=== PATIENT | female | born 1980 | race Caucasian/White ===

== ENCOUNTER 2017-01-02 09:06 | Emergency (ER) | payer BC ==
[2017-01-02 10:39] VITALS: BP 124/70
--- NOTE | 2017-01-02 10:51 | UC ---
Respiratory Complaint HPI - HPI Summary HPI Summary: PATIENT PRESENTS WITH COUGH, CONGESTION, FEVER AND BODY ACHES X 3 DAYS. SHE STATES HER DAUGHTER HAS BEEN SICK FOR 1 WEEK. SHE IS AND HAS BEEN TAKING TYLENOL WITHOUT RELIEF. COUGH IS WITH MILD PRODUCTION AND IS CLEAR TO GREEN WITH A SPECK OF RED IN COLOR. BODY ACHES THROUGHOUT WITH CONGESTION MAINLY IN THE MIDSTERNAL CHEST WHICH DOES NOT RADIATE. SHE DENIES URINARY SYMPTOMS, BUT NOTES TO DECREASED APPETITE. NEXT APPT WITH OBGYN ON 01/19/17. - History of Current Complaint Chief Complaint: UCGI Stated Complaint: RESPIRATORY Time Seen by Provider: 01/02/17 10:16 Hx Obtained From: Patient Hx Last Menstrual Period: 07/12/16 ?: Yes Onset/Duration: Gradual Onset Timing: Constant Severity Initially: Moderate Severity Currently: Moderate Pain Intensity: 2 Pain Scale Used: 0-10 Numeric Character: Cough: Productive Aggravating Factors: Recumbent Position Alleviating Factors: Upright Position Associated Signs And Symptoms: Positive: Fever, Chills, URI, Nasal Congestion, Sinus Discomfort - Risk Factors Pulmonary Embolism Risk Factors: Cardiac Risk Factors: Negative Pseudomonas Risk Factors: Negative Tuberculosis Risk Factors: Negative - Allergies/Home Medications Allergies/Adverse Reactions: Allergies Allergy/AdvReac Type Severity Reaction Status Date / Time Penicillins Allergy Hives Verified 01/02/17 10:10 Home Medications: Home Medications Acetaminophen [Acetaminophen Extra Stren] 500 mg PO BEDTIME 01/02/17 [History Confirmed 01/02/17] PMH/Surg Hx/FS Hx/Imm Hx Previously Healthy: Yes Endocrine History Of: Denies: Diabetes, Thyroid Disease, Hyperthyroidism, Hypothyroidism, Dyslipidemia Respiratory History Of: Denies: COPD, Asthma, Bronchitis, Pneumonia, Pulmonary Embolism GI/ History Of: Denies: Gastroesophageal Reflux, Ulcer, Gastrointestinal Bleed, Gall Bladder Disease, Kidney Stones, Diverticulitis, Renal Disease, Urosepsis Neurological History Of: Denies: TIA, CVA, Dementia, Seizures, Migraine Psychological History Of: Denies: Anxiety, Depression, Bipolar Disorder, Schizophrenia, Post Traumatic Stress Disorder Cancer History Of: Denies: Lung Cancer, Colorectal Cancer, Breast Cancer, Prostate Cancer, Cervical Cancer - Surgical History Surgical History: Yes Surgery Procedure, Year, and Place: T&A, 1987. , 2011. [facility], 1999 - Family History Known Family History: Negative: Cardiac Disease, Diabetes - Social History Occupation: Employed Full-time Lives: With Family Alcohol Use: None Alcohol Amount: 1 bottle of wine a week Substance Use Type: None Smoking Status (MU): Former Smoker Type: Cigarettes Length of Time of Smoking/Using Tobacco: 8 Years Have You Smoked in the Last Year: No When Did the Patient Quit Smoking/Using Tobacco: 2006 Review of Systems Constitutional: Fever, Fatigue Skin: Negative Eyes: Negative ENT: Nasal Discharge Respiratory: Cough Cardiovascular: Negative Gastrointestinal: Negative Motor: Negative Neurovascular: Negative Neurological: Negative Psychological: Negative All Other Systems Reviewed And Are Negative: Yes Physical Exam Triage Information Reviewed: Yes Appearance: Well-Appearing, No Pain Distress, Well-Nourished Vital Signs: Initial Vital Signs Temp 100 F 01/02/17 09:59 Pulse 109 01/02/17 09:59 Resp 22 01/02/17 09:59 BP 124/70 01/02/17 09:59 Pulse Ox 97 01/02/17 09:59 Vital Signs Reviewed: Yes Eye Exam: Normal Eyes: Positive: Conjunctiva Clear ENT: Positive: Pharynx normal, Nasal drainage Dental Exam: Normal Neck exam: Normal Neck: Positive: Supple, No Lymphadenopathy Respiratory: Positive: Chest non-tender, Lungs clear, Normal breath sounds, No respiratory distress Cardiovascular Exam: Normal Cardiovascular: Positive: RRR, No Murmur Musculoskeletal Exam: Normal Musculoskeletal: Positive: Strength Intact Neurological Exam: Normal Neurological: Positive: Alert Psychological: Positive: Normal Response To Family Skin Exam: Normal UC Diagnostic Evaluation - Laboratory O2 Sat by Pulse Oximetry: 97 Respiratory Course/Dx - Course Course Of Treatment: LUNG BASES ARE CLEAR. CONGESTION IS MIDSTERNAL AND DOES NOT RADIATE. SHE ENDORSES FEVER AND BODY ACHES. EDUCATED PATIENT ON VIRAL ILLNESSES AND INCREASED RISK OF VIRAL ILLNESSES IN WOMEN WITH SYMPTOMS OF CONGESTION, FEVER, BODY ACHES. PATIENT IS ENCOURAGED TO TAKE A FEW DAYS OFF WORK, USE TYLENOL FOR ANY FEVER AND MUCINEX (SAFE IN ) NEEDED FOR CONGESTION. FOLLOW UP NEEDED OR FOR ANY WORSENING SYMPTOMS. - Differential Dx/Diagnosis Differential Diagnosis/HQI/PQRI: Bronchitis, Lower Resp Infection, Sinusitis Provider Diagnoses: UPPER RESPIRATORY INFECTION Discharge - Discharge Plan Condition: Stable Disposition: HOME Prescriptions: Pseudoephedrine-Guaifenesin [Mucinex D] 1 tab PO DAILY #10 tab Patient Education Materials: Upper Respiratory Infection (ED) Forms: *Work Release Referrals: Riana Ratliff MD [Primary Care Provider] - Additional Instructions: Based on the limited available data, an increased risk of adverse outcomes has not been observed following maternal use of guaifenesin in (Denys 1985; Macey 1977; Analia 1981; Ankita 2013; West 1998). Alcohol may be present in some liquid formulations of guaifenesin. If consumed in sufficient quantities during , alcohol syndrome may result ( Florentin 1981). Tylenol 650 mg every 4 to 6 hours; maximum daily dose: 3250 mg daily unless directed by health care provider; under health care provider supervision Upper respiratory tract infection is common in women, especially in the winter, when the etiology is likely viral. The clinical manifestations of low grade fever, congestion, rhinorrhea, and cough are helpful in the diagnosis.
== END 2017-01-02 10:53 | disposition home or self-care (01) ==
LOC: UCCORT 09:06
DX: O26.892 Other specified pregnancy related conditions, second trimester (principal); J06.9 Acute upper respiratory infection, unspecified; Z3A.25 25 weeks gestation of pregnancy; Z88.0 Allergy status to penicillin; Z87.891 Personal history of nicotine dependence
CPT/HCPCS: 99212; G0463

== ENCOUNTER 2017-01-07 09:02 | Emergency (ER) | payer BC ==
[2017-01-07 09:30] VITALS: BP 110/64
--- NOTE | 2017-01-07 10:10 | UC ---
Throat Pain/Nasal Binh HPI - HPI Summary HPI Summary: 10 day history of congestion, cough and malaise. Here 01/02 and diagnosed with URI, symptomatic treatment advised. Initially had fever, now has increasing cough with nocturnal wheeze, increasing facial pressure, and malaise. Appetite decreased. - History of Current Complaint Chief Complaint: UCRespiratory Stated Complaint: SINUS Time Seen by Provider: 01/07/17 09:37 Hx Obtained From: Patient Hx Last Menstrual Period: 07/08/16 ?: Yes Onset/Duration: Gradual Onset, Lasting Days - 8 Severity: Moderate Cough: Productive Associated Signs & Symptoms: Positive: Wheezing, Hoarseness, Sinus Discomfort - Epiglottits Risk Factors Epiglottis Risk Factors: Negative - Allergies/Home Medications Allergies/Adverse Reactions: Allergies Allergy/AdvReac Type Severity Reaction Status Date / Time Penicillins Allergy Hives Verified 01/07/17 09:30 PMH/Surg Hx/FS Hx/Imm Hx Previously Healthy: Yes Endocrine History Of: Denies: Diabetes, Thyroid Disease, Hyperthyroidism, Hypothyroidism, Dyslipidemia Respiratory History Of: Denies: COPD, Asthma, Bronchitis, Pneumonia, Pulmonary Embolism GI/ History Of: Denies: Gastroesophageal Reflux, Ulcer, Gastrointestinal Bleed, Gall Bladder Disease, Kidney Stones, Diverticulitis, Renal Disease, Urosepsis Neurological History Of: Denies: TIA, CVA, Dementia, Seizures, Migraine Psychological History Of: Denies: Anxiety, Depression, Bipolar Disorder, Schizophrenia, Post Traumatic Stress Disorder Cancer History Of: Denies: Lung Cancer, Colorectal Cancer, Breast Cancer, Prostate Cancer, Cervical Cancer - Surgical History Surgical History: Yes Surgery Procedure, Year, and Place: T&A, 1987. , 2011. 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 Lives: With Family Alcohol Use: None Alcohol Amount: 1 bottle of wine a week Substance Use Type: None Smoking Status (MU): Former Smoker Type: Cigarettes Length of Time of Smoking/Using Tobacco: 8 Years Have You Smoked in the Last Year: No When Did the Patient Quit Smoking/Using Tobacco: 2006 Review of Systems Constitutional: Fatigue Skin: Negative Eyes: Negative ENT: Sore Throat Respiratory: Cough Cardiovascular: Negative Gastrointestinal: Negative Genitourinary: Negative Motor: Negative Neurovascular: Negative Musculoskeletal: Negative Neurological: Headache Psychological: Negative All Other Systems Reviewed And Are Negative: Yes Physical Exam Triage Information Reviewed: Yes Appearance: Ill-Appearing - looks fatigued and unwelll. Vital Signs: Initial Vital Signs Temp 97.9 F 01/07/17 09:23 Pulse 98 01/07/17 09:23 Resp 18 01/07/17 09:23 BP 110/64 01/07/17 09:23 Pulse Ox 98 01/07/17 09:23 ENT: Positive: Pharyngeal erythema, Other: - tenderness maxillary sinuses. Neck: Positive: Supple, Nontender, No Lymphadenopathy Respiratory: Positive: Rhonchi - upper lung hernandes., Other: - course breath sounds. Negative: Respiratory distress, Accessory muscle use Cardiovascular: Positive: RRR, No Murmur Abdomen Description: Positive: Nontender, Soft Musculoskeletal Exam: Normal Neurological Exam: Normal Psychological Exam: Normal Skin Exam: Normal Throat Pain/Nasal Course/Dx - Course Course Of Treatment: azithromycin for treatment of sinusitis. - Differential Dx/Diagnosis Differential Diagnosis/HQI/PQRI: Pharyngitis, Sinusitis, Other - pneumonia Provider Diagnoses: bilateral maxillary sinusitis. Discharge - Discharge Plan Condition: Stable Disposition: HOME Patient Education Materials: Sinusitis (ED) Additional Instructions: Continue high intake of fluids. Take full course of azithromycin, and rest at home over the weekend.
== END 2017-01-07 10:23 | disposition home or self-care (01) ==
LOC: UCCORT 09:02
DX: J01.00 Acute maxillary sinusitis, unspecified (principal); B96.89 Other specified bacterial agents as the cause of diseases classified elsewhere; Z87.891 Personal history of nicotine dependence
CPT/HCPCS: 99212; G0463

== ENCOUNTER 2017-03-31 06:07 | Inpatient (IN) | payer BC ==
[2017-03-31] MEDS ORDERED: Famotidine IV* 10 MG/ML 2 ML (20 mg) IV ONE (06:09)
[2017-03-31] MEDS ORDERED: Sodium Citrate/Citric Acid* 15 ML UDC PO ONE (06:09)
[2017-03-31] MEDS ORDERED: Buffered Lidocaine 0.9% SYRIN* 5 ML/SYR SYRINGE INTRADERM ONE (06:09)
[2017-03-31 06:47] LABS: Hematocrit 41 % (35-47); Hemoglobin 13.7 g/dl (12.0-16.0); Mean Corpuscular HGB Conc 34 g/dl (31-36); Mean Corpuscular Hemoglobin 29 pg (27-31); Mean Corpuscular Volume 86 fL (80-97); Mean Platelet Volume 9 um3 (7.4-10.4); Red Blood Count 4.77 10^6/ul (4.0-5.4); Red Cell Distribution Width 14 % (10.5-15)
[2017-03-31] MEDS ORDERED: OXYTOCIN* 10 UNITS/ML 1 ML VIAL ONE ×2 (07:20→08:20)
[2017-03-31] MEDS ORDERED: Ondansetron INJ* 2 MG/ML VIAL ONE (07:20)
[2017-03-31] MEDS ORDERED: Morphine PF AMP (0.5MG/ML)* 5 MG/10 ML AMP ONE (07:20)
[2017-03-31] MEDS ORDERED: Phenylephrine IV* 40 MCG/ML 10 ML SYRINGE ONE ×2 (07:20→08:35)
[2017-03-31] MEDS ORDERED: Dexamethasone IV* 4 MG/ML 1 ML (4 MG) ONE (07:20)
[2017-03-31] MEDS ORDERED: ceFOXitin 2 GM IVPREMIX* 2 GM/50 ML BAG ONE (07:27)
[2017-03-31] MEDS ORDERED: EPHEDrine (Pressors)* 50 MG/ML VIAL ONE (08:37)
[2017-03-31] MEDS ORDERED: Ondansetron INJ* 2 MG/ML VIAL IV PRN (08:45)
[2017-03-31] MEDS ORDERED: fentaNYL* 50 MCG/ML 2 ML VIAL (100 MCG VIAL) IV PRN (08:45)
[2017-03-31] MEDS ORDERED: Naloxone* 0.4 MG/ML 1 ML VIAL IV PRN (08:45)
[2017-03-31] MEDS ORDERED: Nalbuphine* 20 MG/ML 1 ML VIAL IV PRN ×2 (08:45)
[2017-03-31] MEDS ORDERED: oxyCODONE/Acetamin 5/325 MG* TAB PO PRN (08:45)
[2017-03-31] MEDS ORDERED: DiMENhydriNATE IV* 50 MG/ML VIAL IV PUSH PRN (08:45)
[2017-03-31] MEDS ORDERED: Ketorolac INJ* 30 MG/ML 1 ML VIAL IV PRN (08:45)
[2017-03-31] MEDS ORDERED: Glycerin ADULT SUPP PR PRN (09:43)
[2017-03-31] MEDS ORDERED: Witch Hazel PAD* JAR TOPICAL PRN (09:43)
[2017-03-31] MEDS ORDERED: Dibucaine 1% 28.35 GM TUBE PR PRN (09:43)
[2017-03-31] MEDS ORDERED: fentaNYL* 50 MCG/ML 2 ML VIAL (100 MCG VIAL) ONE (09:50)
[2017-03-31] MEDS ORDERED: Oxytocin in LR* 20 UNITS/1,000 ML BAG IVPB SCH (10:00)
[2017-03-31] MEDS ORDERED: Nalbuphine* 20 MG/ML 1 ML VIAL ONE (10:08)
[2017-03-31] MEDS: Ibuprofen TAB* 600 MG PO SCH ×2 (11:43→18:26)
[2017-03-31] MEDS: Simethicone CHEW TAB* 80 MG PO SCH ×3 (13:19→20:19)
[2017-03-31] MEDS: Docusate CAP* 100 MG PO SCH ×2 (14:33→20:20)
[2017-03-31] MEDS: oxyCODONE/Acetamin 5/325 MG* TAB PO PRN ×2 (16:32→20:19)
[2017-04-01] MEDS ORDERED: oxyCODONE/Acetamin 5/325 MG* TAB PO PRN
[2017-04-01] MEDS ORDERED: Acetaminophen TAB* 325 MG PO PRN
[2017-04-01] MEDS: Ibuprofen TAB* 600 MG PO PRN ×3 (00:19→20:00)
--- NOTE | 2017-04-01 03:54 | OP ---
OPERATIVE REPORT: DATE OF OPERATION: 03/31/17 DATE OF : 76 SURGEON: Dr. Shruthi Weber. MODELING ANALYST: Dr. Augustine. ANESTHESIOLOGIST: Dr. Schumacher. ANESTHESIA: Spinal anesthesia. PRE-OP DIAGNOSIS: Intrauterine at 38 and 0/7 weeks, mild preeclampsia, desires repeat jm arean section. POST-OP DIAGNOSIS: Intrauterine at 38 and 0/7 weeks, mild preeclampsia, desires repeat ce sarean section, delivered. OPERATIVE PROCEDURE: 1. Repeat low transverse section with vacuum extraction. 2. Lysis of adhesions. ESTIMATED BLOOD LOSS: 600 cc. URINE OUTPUT: 200 mL of clear yellow urine. FLUIDS: 2600 cc of crystalloid. FINDINGS: Revealed a vertex male infant; weight was 10 pounds 15 ounces; Apgars 8 at 1 minute, 9 at 5 minutes, cord presenting in front of head with multiple loops. Light meconium noted. Normally pa lpated and normally appearing tubes and ovaries. No evidence of prior ectopic location. T wo anterior intramural fibroids noted. Placenta 3-vessel cord manually extracted and intact with a small area with placental membrane had blood between the amnion and the chorion, which was intact and old based on its appearance. Placental bed was otherwise normal. The uterine cavity was noted to be free of any membranes or placental tissue. COMPLICATIONS: None apparent. DISPOSITION: Stable to recovery room. DESCRIPTION OF PROCEDURE: The patient was placed in dorsal lithotomy position. The abdomen was prep ped and draped in a sterile standard fashion. After identifying the patient with universal protocol , incision was checked for appropriate level of anesthesia. Scalpel was used to prior incision and this was used to incise the skin. This was carried down through the fascia. Fascia was scored in t he midline and the fascia was sharply and bluntly from the rectus muscle both superiorly a nd inferiorly. Peritoneum was entered sharply using scalpel and the peritoneal incision was extende d bluntly. The bladder blade was inserted. The lower uterine segment was identified. An Allis was used to tent up on the lower uterine segment. Bandage scissors were used to extend the incision marilou th laterally and superiorly. Amniotomy was created. Light meconium was noted. The head was noted t o be floating and not engaged. There were multiple cords and loops of cord in front of the head. T he vacuum was applied to the head at this point after attempted delivery and then delivery occurred with the vacuum. Anterior and posterior shoulders were then delivered. The cord was milked and then clamped and cut and the infant was then handed off to the awaiting specialty therapist. Appropriate cord blood was obtained. Placenta was then manually extracted and noted to have 3-vessel cord and noted to be intact and had a small loculation between the amnion and the chorion, which was noted to be ol d and stable. The uterine cavity was explored and noted to be free of any membranes or placental ti ssue. The uterine incision itself was reapproximated in 2 layers, first layer running locked 0 Vicr yl, second layer running imbricated. There were two anterior fibroids noted. The ovaries were palp ated bilaterally and the tubes were palpated and noted to have a normal palpation and then with lava ge, the uterus was shifted to the other side and the ovaries and tubes were noted to have a normal a ppearance. The anterior wall was noted have an omental adhesion. This was clamped with Radha x2, tr ansected and then suture ligated using 0 Vicryl so the hemostasis was assured from both pedicles. T he peritoneum was then reapproximated using 3-0 Vicryl in a running fashion. The subfascial area wa s visualized and noted to be hemostatic. The fascia itself was reapproximated using 0 Vicryl x2. Th e subcu was lavaged, hemostasis was assured and then the subcu was reapproximated using a 3-0 Polyso rb in an interrupted fashion. The skin was then reapproximated using a 4-0 Monocryl in a subcuticul ar fashion. Mastisol and Steri-Strips were applied. All sponge, needle, instrument, and blade coun ts were correct throughout the case. The patient tolerated the procedure well and went to recovery room in stable condition. [id number]/[facility] #: [id number]
[2017-04-01] MEDS: Ibuprofen TAB* 600 MG PO SCH (07:57)
[2017-04-01] MEDS: oxyCODONE/Acetamin 5/325 MG* TAB PO PRN ×4 (07:57→20:00)
[2017-04-01] MEDS: Docusate CAP* 100 MG PO SCH ×3 (07:58→20:00)
[2017-04-01] MEDS: Simethicone CHEW TAB* 80 MG PO SCH ×4 (07:58→20:00)
[2017-04-01 08:09] LABS: Hematocrit 34 % (35-47); Hemoglobin 11.4 g/dl (12.0-16.0); Mean Corpuscular HGB Conc 34 g/dl (31-36); Mean Corpuscular Hemoglobin 30 pg (27-31); Mean Corpuscular Volume 87 fL (80-97); Mean Platelet Volume 9 um3 (7.4-10.4); Red Blood Count 3.88 10^6/ul (4.0-5.4); Red Cell Distribution Width 14 % (10.5-15); White Blood Count 13.9 10^3/ul (3.5-10.8)
[2017-04-01] MEDS ORDERED: Ferrous Gluconate TAB* 324 MG TAB PO SCH (09:00)
[2017-04-01] MEDS: Multivitamins/Minerals TAB PO SCH (12:09)
[2017-04-02] MEDS: oxyCODONE/Acetamin 5/325 MG* TAB PO PRN ×6 (00:14→22:21)
[2017-04-02] MEDS: Ibuprofen TAB* 600 MG PO PRN ×3 (04:03→18:13)
[2017-04-02] MEDS: Simethicone CHEW TAB* 80 MG PO SCH ×4 (09:02→20:49)
[2017-04-02] MEDS: Docusate CAP* 100 MG PO SCH ×3 (09:02→20:49)
[2017-04-02] MEDS: Multivitamins/Minerals TAB PO SCH (10:07)
[2017-04-03] MEDS: Ibuprofen TAB* 600 MG PO PRN ×2 (00:18→06:27)
[2017-04-03] MEDS: oxyCODONE/Acetamin 5/325 MG* TAB PO PRN (06:32)
[2017-04-03 08:06] VITALS: BP 118/70
== END 2017-04-03 11:27 | disposition home or self-care (01) | DRG 540 ==
LOC: MCHOB 06:07
PROVIDERS: ADMIT Obstetrics & Gynecology; ATTEND Obstetrics & Gynecology
PROC: 0UN90ZZ Release Uterus, Open Approach (ICD-10-PCS; 2017-03-31)
PROC: 10D00Z1 Extraction of Products of Conception, Low, Open Approach (ICD-10-PCS; principal; 2017-03-31 07:48)
DX: O14.04 Mild to moderate pre-eclampsia, complicating childbirth (principal); O24.429 Gestational diabetes mellitus in childbirth, unspecified control; N73.6 Female pelvic peritoneal adhesions (postinfective); O34.211 Maternal care for low transverse scar from previous cesarean delivery; O69.81X0 Labor and delivery complicated by cord around neck, without compression, not applicable or unspecified; Z3A.38 38 weeks gestation of pregnancy; Z37.0 Single live birth; O77.0 Labor and delivery complicated by meconium in amniotic fluid
CPT/HCPCS: 36415; 85025; 85027; 86850; 86900; 86901; 88307; A9270-GY; J0694; J1100; J2300; J2405; J2590; J3010

== ENCOUNTER 2017-08-06 09:06 | Emergency (ER) | payer BC ==
[2017-08-06 10:05] VITALS: BP 138/85
--- NOTE | 2017-08-06 10:30 | UC ---
Respiratory Complaint HPI - HPI Summary HPI Summary: 36 yo female with a day hx of runny nose/post nasal drip/sore throat and uvular edema no f/c no SOB or trouble swallowing - History of Current Complaint Chief Complaint: UCRespiratory Stated Complaint: ST Time Seen by Provider: 08/06/17 10:20 Hx Last Menstrual Period: 07/10/17 Onset/Duration: Gradual Onset, Lasting Hours Timing: Constant Severity Initially: Moderate Severity Currently: Mild Pain Intensity: 1 Pain Scale Used: 0-10 Numeric Character: Cough: Nonproductive Alleviating Factors: Nothing Associated Signs And Symptoms: Positive: URI, Nasal Congestion, Hoarseness - Allergies/Home Medications Allergies/Adverse Reactions: Allergies Allergy/AdvReac Type Severity Reaction Status Date / Time Penicillins Allergy Mild Hives Verified 08/06/17 09:59 Home Medications: Home Medications ALPRAZolam TAB* [Xanax TAB*] 0.25 mg PO BID PRN 08/06/17 [History Confirmed ] PMH/Surg Hx/FS Hx/Imm Hx Previously Healthy: Yes - Surgical History Surgical History: Yes Surgery Procedure, Year, and Place: T&A, 1987. x2. LEEP, 1999 - Family History Known Family History: Negative: Cardiac Disease, Diabetes - Social History Alcohol Use: Weekly Alcohol Amount: 1 bottle of wine a week Substance Use Type: None Smoking Status (MU): Former Smoker Type: Cigarettes Length of Time of Smoking/Using Tobacco: 8 Years Have You Smoked in the Last Year: No When Did the Patient Quit Smoking/Using Tobacco: 2006 - Immunization History Most Recent Influenza Vaccination: 2015 Most Recent Pneumonia Vaccination: none Review of Systems Constitutional: Negative Skin: Negative Eyes: Negative ENT: Sore Throat, Nasal Discharge Respiratory: Cough Cardiovascular: Negative Gastrointestinal: Negative Genitourinary: Negative Motor: Negative Neurovascular: Negative Musculoskeletal: Negative Neurological: Negative Psychological: Negative Is Patient Immunocompromised?: No All Other Systems Reviewed And Are Negative: Yes Physical Exam Triage Information Reviewed: Yes Appearance: Well-Appearing, No Pain Distress, Well-Nourished Vital Signs: Initial Vital Signs Temp 98.1 F 08/06/17 10:00 Pulse 73 08/06/17 10:00 Resp 20 08/06/17 10:00 BP 138/85 08/06/17 10:00 Pulse Ox 99 08/06/17 10:00 Vital Signs Reviewed: Yes Eyes: Positive: Conjunctiva Clear ENT: Positive: Hearing grossly normal, Nasal congestion, Nasal drainage, TMs normal, Hoarse voice, Uvula midline - but mild edema. Negative: Trismus, Muffled voice Neck: Positive: Supple, Nontender, No Lymphadenopathy Respiratory: Positive: Lungs clear, Normal breath sounds, No respiratory distress Cardiovascular: Positive: No Murmur, Pulses Normal Musculoskeletal: Positive: ROM Intact, No Edema Neurological: Positive: Alert Psychological Exam: Normal Skin Exam: Normal UC Diagnostic Evaluation - Laboratory O2 Sat by Pulse Oximetry: 99 Respiratory Course/Dx - Course Course Of Treatment: strep (-) - Differential Dx/Diagnosis Provider Diagnoses: viral URI. uvular edema Discharge - Discharge Plan Condition: Stable Disposition: HOME Prescriptions: Prednisone 60 mg PO DAILY #9 tab Patient Education Materials: Upper Respiratory Infection (ED) Referrals: Riana Ratliff MD [Primary Care Provider] - 2 Days (if not better) Additional Instructions: recheck for new or worsening symptoms
== END 2017-08-06 10:39 | disposition home or self-care (01) ==
LOC: UCCORT 09:06
DX: J06.9 Acute upper respiratory infection, unspecified (principal); K13.79 Other lesions of oral mucosa; Z72.89 Other problems related to lifestyle; Z87.891 Personal history of nicotine dependence
CPT/HCPCS: 87651; 99212; G0463

== ENCOUNTER 2018-11-08 11:10 | Emergency (ER) | payer BC ==
--- OUTSIDE RECORDS SUMMARY | 2018-11-08 11:41 | XMS REPORT | Continuity of Care Document ---
:1980 External Reference #:[id number] Author Name Riana Ratliff MD Address [address] [place] [address] Care Team Providers Name Role Phone Riana Ratliff MD Care Team Information Transformer Maker Unavailable Riana Ratliff MD Primary Care Physician Unavailable Payers Date Identification Numbers Payment Provider Subscriber Policy Number: [id number] [facility] Ppo Colleen Siddiqi PayID: [id number] [address] [address] [place] [address] Advance Directives Description No Information Available Problems Date Description Provider Status Onset: 05/24/2010 Insomnia Riana Ratliff MD Active Onset: 10/01/2009 Generalized anxiety disorder Riana Ratliff MD Active Onset: 08/11/2015 Fibromyalgia Riana Ratliff MD Active Onset: 11/06/2018 History of gestational diabetes mellitus Riana Ratliff MD Active Family History Date Family Member(s) Observation Comments Father ulcerated esophagus - was told this is precancerous. 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 Allergies, Adverse Reactions, Alerts Date Description Reaction Status Severity Comments 10/01/2009 Penicillins Hives Active Medications Medication Date Status Form Strength Qnty SIG Indications Ordering Provider Magnesium 06/05/ Active Capsules 500mg 1 by mouth Gaudencio, 2016 every day otc MD Riana Alprazolam 06/05/ Active Tablets 0.25mg 90tab 1 tab by F41.1 Gaudencio 2016 s mouth three MD Riana times daily as needed Duloxetine HCL 06/05/ Active Caps DR 30mg 90cap 1 by mouth M79.7 Almaraz, 2016 Part s every day for Kirill, fibromyalgia DO pain Vitamin D High 01/10/ Active Capsules 1000Unit 30cap 1 by mouth Gaudencio Potency 2017 s every day MD Riana Multivitamin / Active Tablets 1 by mouth Unknown Adult 0000 every day 01/10/ Hx Tablets 14-0.4mg 90tab 1 by mouth Gaudencio Complete 2016 - s every day MD Riana 2017 Vitamin B 6 01/10/ Hx Tablets 50mg 30tab 1 by mouth Gaudencio 2016 - s every day MD Riana 2016 Azelastine HCL 01/10/ Hx Solution 0.15% 30ml 2 sprays each J01.90 Gaudencio (Nasal) 2016 - nostril twice MD Riana 06/05/ a day as 2017 needed for nasal congestion Magnesium 08/11/ Hx Tablets 500mg 1 by mouth Gaudencio, 2014 - every day MD Riana 2015 Duloxetine HCL 06/08/ Hx Caps DR 30mg 30cap 1 by mouth M79.7 Gaudencio 2014 - Part s every day for MD Riana 01/10/ pain 2016 Duloxetine HCL 05/05/ Hx Caps DR 60mg 30cap 1 by mouth M79.7 Gaudencio 2014 - Part s every day MD Riana 2014 Multi-Day 04/02/ Hx Tablets 1 by mouth Gaudencio Vitamins 2013 - every day MD Riana 2016 Eszopiclone 01/08/ Hx Tablets 2mg 30tab 1 by mouth G47.00 Gaudencio 2012 - s every at MD Riana 01/10/ bedtime as 2017 needed Duloxetine HCL 06/20/ Hx Caps DR 30mg 30cap 1 by mouth Gaudencio 2011 - Part s every day MD Riana 2014 Alprazolam 06/15/ Hx Tablets 0.25mg 60tab 1 tab by F41.1 Sandhya Ratliff s mouth twice MD Riana 01/10/ daily as 2017 needed Immunizations CPT Code Status Date Vaccine Lot # [id number] Given 06/02/2018 Flu Vaccine NOS [id number] Given 06/14/2017 Afluria Or Fluvirin Flu Vac Intramuscular Q2035 Given 05/20/2016 Afluria Imunization Q2039 Given 05/14/2016 Flu Vaccine NOS Q2037 Given 06/05/2015 Fluvirin Immunization [id number] Given 05/09/2014 Afluria Or Fluvirin Flu Vac Intramuscular 91214 Given 06/07/2013 Afluria Or Fluvirin Flu Vac Intramuscular 01074 Given 07/10/2012 Afluria Or Fluvirin Flu Vac Intramuscular 25021 Given 04/25/2012 Tdap (Adacel) Ages 7 And Above Only Q2039 Refused 05/14/2018 Flu Vaccine NOS Vital Signs Date Vital Result Comment 11/06/2018 4:09pm Heart Rate 95 /min Respiratory Rate 16 /min BP Systolic 122 mmHg BP Diastolic 72 mmHg Height 63 inches 5'3" Weight 198.00 lb BMI (Body Mass Index) 35.1 kg/m2 O2 % BldC Oximetry 97 % Ra 08/17/2018 8:00am Heart Rate 76 /min Respiratory Rate 18 /min BP Systolic 124 mmHg BP Diastolic 72 mmHg Height 63 inches 5'3" Weight 198.00 lb BMI (Body Mass Index) 35.1 kg/m2 05/14/2018 2:57pm Heart Rate 84 /min Respiratory Rate 16 /min BP Systolic 116 mmHg BP Diastolic 74 mmHg Height 63 inches 5'3" Weight 194.00 lb BMI (Body Mass Index) 34.4 kg/m2 02/19/2018 3:52pm Heart Rate 76 /min Respiratory Rate 18 /min BP Systolic 112 mmHg BP Diastolic 72 mmHg Height 63 inches 5'3" Done On 11/20/17 Weight 198.00 lb BMI (Body Mass Index) 35.1 kg/m2 01/11/2018 4:38pm Heart Rate 88 /min Respiratory Rate 18 /min BP Systolic 122 mmHg BP Diastolic 70 mmHg Height 63 inches 5'3" Done On 11/20/17 Weight 196.00 lb BMI (Body Mass Index) 34.7 kg/m2 11/20/2017 11:12am Heart Rate 68 /min Respiratory Rate 18 /min BP Systolic 122 mmHg BP Diastolic 70 mmHg Height 63 inches 5'3" Done On 11/20/17 Weight 198.00 lb BMI (Body Mass Index) 35.1 kg/m2 09/12/2017 3:58pm Height 63 inches 5'3" Done On 01/10/17 08/08/2017 4:21pm Heart Rate 76 /min Respiratory Rate 18 /min BP Systolic 122 mmHg BP Diastolic 70 mmHg Height 63 inches 5'3" Done On 01/10/17 Weight 200.00 lb BMI (Body Mass Index) 35.4 kg/m2 06/05/2017 4:01pm Heart Rate 64 /min Respiratory Rate 18 /min BP Systolic 102 mmHg BP Diastolic 62 mmHg Height 63 inches 5'3" Done On 01/10/17 Weight 188.00 lb BMI (Body Mass Index) 33.3 kg/m2 01/10/2017 3:45pm Body Temperature 98.3 F Heart Rate 76 /min Respiratory Rate 18 /min BP Systolic 110 mmHg BP Diastolic 70 mmHg Height 63 inches 5'3" Done On 01/10/17 Weight 190.00 lb BMI (Body Mass Index) 33.7 kg/m2 07/12/2016 3:17pm Heart Rate 76 /min Respiratory Rate 18 /min BP Systolic 102 mmHg BP Diastolic 70 mmHg Height 63 inches 5'3" Done On 01/26/16 Weight 199.00 lb BMI (Body Mass Index) 35.2 kg/m2 01/26/2016 10:28am Heart Rate 76 /min Respiratory Rate 18 /min BP Systolic 122 mmHg BP Diastolic 82 mmHg Height 63 inches 5'3" Done On 01/26/16 Weight 194.00 lb BMI (Body Mass Index) 34.4 kg/m2 08/11/2015 9:22am Heart Rate 76 /min Respiratory Rate 18 /min BP Systolic 122 mmHg BP Diastolic 88 mmHg Height 63 inches 5'3" Done On 08/28/14 Weight 192.00 lb BMI (Body Mass Index) 34.0 kg/m2 05/26/2015 2:19pm Body Temperature 99.3 F Respiratory Rate 18 /min BP Systolic 130 mmHg BP Diastolic 90 mmHg Height 63 inches 5'3" Done On 08/28/14 Weight 192.00 lb BMI (Body Mass Index) 34.0 kg/m2 05/05/2015 3:25pm Body Temperature 98.2 F Heart Rate 98 /min Respiratory Rate 18 /min BP Systolic 132 mmHg BP Diastolic 90 mmHg Height 63 inches 5'3" Done On 08/28/14 Weight 192.00 lb BMI (Body Mass Index) 34.0 kg/m2 O2 % BldC Oximetry 98 % 04/30/2015 4:19pm Heart Rate 76 /min Respiratory Rate 18 /min BP Systolic 124 mmHg BP Diastolic 80 mmHg Height 63 inches 5'3" Done On 08/28/14 Weight 192.00 lb BMI (Body Mass Index) 34.0 kg/m2 02/26/2015 10:47am Heart Rate 76 /min Respiratory Rate 18 /min BP Systolic 102 mmHg BP Diastolic 70 mmHg Height 63 inches 5'3" Done On 08/28/14 Weight 193.00 lb BMI (Body Mass Index) 34.2 kg/m2 12/23/2014 4:56pm Heart Rate 88 /min Respiratory Rate 18 /min BP Systolic 122 mmHg BP Diastolic 90 mmHg Height 63 inches 5'3" Done On 08/28/14 Weight 190.00 lb BMI (Body Mass Index) 33.7 kg/m2 08/28/2014 2:49pm Heart Rate 80 /min Respiratory Rate 18 /min BP Systolic 120 mmHg BP Diastolic 88 mmHg Height 63 inches 5'3" Done On 08/28/14 Weight 192.00 lb BMI (Body Mass Index) 34.0 kg/m2 08/12/2014 10:31am Heart Rate 76 /min Respiratory Rate 18 /min BP Systolic 122 mmHg BP Diastolic 70 mmHg Height 63.25 inches 5'3.25" (Done On 09/06/13) Weight 190.00 lb 06/12/2014 3:23pm Heart Rate 80 /min Respiratory Rate 18 /min BP Systolic 130 mmHg BP Diastolic 90 mmHg Height 63.25 inches 5'3.25" (Done On 09/06/13) Weight 192.00 lb 04/25/2014 12:58pm Heart Rate 80 /min Respiratory Rate 18 /min BP Systolic 122 mmHg BP Diastolic 80 mmHg Height 63.25 inches 5'3.25" (Done On 09/06/13) Weight 189.00 lb 04/02/2014 9:35am Heart Rate 64 /min Respiratory Rate 18 /min BP Systolic 124 mmHg BP Diastolic 88 mmHg Height 63.25 inches 5'3.25" (Done On 09/06/13) Weight 190.00 lb 01/22/2014 11:21am Body Temperature 98.8 F Ibuprofen This Am Heart Rate 74 /min Respiratory Rate 18 /min BP Systolic 130 mmHg BP Diastolic 70 mmHg Height 63.25 inches 5'3.25" (Done On 09/06/13) Weight 188.00 lb 01/14/2014 3:26pm Heart Rate 68 /min Respiratory Rate 18 /min BP Systolic 112 mmHg BP Diastolic 80 mmHg Height 63.25 inches 5'3.25" (Done On 09/06/13) Weight 190.00 lb 12/03/2013 3:06pm Heart Rate 72 /min Respiratory Rate 18 /min BP Systolic 130 mmHg BP Diastolic 98 mmHg Height 63.25 inches 5'3.25" (Done On 09/06/13) Weight 184.00 lb 10/15/2013 3:47pm Body Temperature 99.1 F Heart Rate 80 /min Respiratory Rate 18 /min BP Systolic 116 mmHg BP Diastolic 80 mmHg Height 63.25 inches 5'3.25" (Done On 09/06/13) Weight 190.00 lb O2 % BldC Oximetry 98 % 09/06/2013 11:03am Heart Rate 80 /min Respiratory Rate 18 /min BP Systolic 124 mmHg BP Diastolic 84 mmHg Height 63.25 inches 5'3.25" Weight 186.00 lb 07/19/2013 11:22am Heart Rate 84 /min Respiratory Rate 16 /min BP Systolic 130 mmHg BP Diastolic 80 mmHg Height 62.75 inches 5'2.75" (Done On 10/01/12) Weight 184.00 lb 05/31/2013 3:42pm Body Temperature 99.1 F Heart Rate 80 /min Respiratory Rate 18 /min BP Systolic 124 mmHg BP Diastolic 84 mmHg Height 62.75 inches 5'2.75" (Done On 10/01/12) Weight 180.00 lb 03/22/2013 8:55am Heart Rate 84 /min Respiratory Rate 16 /min BP Systolic 120 mmHg BP Diastolic 80 mmHg Height 62.75 inches 5'2.75" (Done On 10/01/12) Weight 180.00 lb 01/08/2013 3:42pm Heart Rate 92 /min Respiratory Rate 16 /min BP Systolic 138 mmHg BP Diastolic 90 mmHg Height 62.75 inches 5'2.75" (Done On 10/01/12) Weight 178.00 lb 12/24/2012 3:15pm Heart Rate 88 /min Respiratory Rate 18 /min BP Systolic 120 mmHg BP Diastolic 80 mmHg Height 62.75 inches 5'2.75" (Done On 10/01/12) Weight 183.00 lb 11/15/2012 11:05am Body Temperature 98.8 F Heart Rate 88 /min Respiratory Rate 18 /min BP Systolic 114 mmHg BP Diastolic 80 mmHg Height 62.75 inches 5'2.75" (Done On 10/01/12) Weight 178.00 lb 10/01/2012 3:26pm Heart Rate 64 /min Respiratory Rate 18 /min BP Systolic 124 mmHg BP Diastolic 82 mmHg Height 62.75 inches 5'2.75" Weight 180.00 lb 07/10/2012 3:38pm Heart Rate 100 /min Respiratory Rate 18 /min BP Systolic 132 mmHg BP Diastolic 84 mmHg Height 63 inches 5'3" (Done On 11/10/11) Weight 178.00 lb 06/15/2012 3:54pm Heart Rate 72 /min Respiratory Rate 16 /min BP Systolic 132 mmHg BP Diastolic 90 mmHg Height 63 inches 5'3" (Done On 11/10/11) Weight 172.00 lb O2 % BldC Oximetry 97 % 12/01/2011 2:54pm Heart Rate 88 /min Respiratory Rate 18 /min BP Systolic 134 mmHg BP Diastolic 74 mmHg Height 63 inches 5'3" (Done On 11/10/11) Weight 185.00 lb 11/10/2011 1:23pm BP Systolic 120 mmHg BP Diastolic 80 mmHg 11/10/2011 1:23pm Heart Rate 104 /min Respiratory Rate 18 /min BP Systolic 142 mmHg BP Diastolic 90 mmHg Height 63 inches 5'3" Weight 181.00 lb 06/09/2011 3:01pm Heart Rate 100 /min Respiratory Rate 16 /min BP Systolic 122 mmHg BP Diastolic 84 mmHg Height 63.25 inches 5'3.25"/(Done On 08/30/10) Weight 179.00 lb 05/18/2011 3:23pm Body Temperature 99.1 F Heart Rate 80 /min Respiratory Rate 18 /min BP Systolic 120 mmHg BP Diastolic 90 mmHg Height 63.25 inches 5'3.25"/ Weight 174.38 lb 04/19/2011 3:54pm Body Temperature 99.2 F Heart Rate 93 /min Respiratory Rate 17 /min BP Systolic 126 mmHg BP Diastolic 98 mmHg Height 63.25 inches 5'3.25" Weight 181.00 lb 03/14/2011 3:23pm Heart Rate 92 /min Respiratory Rate 16 /min BP Systolic 118 mmHg BP Diastolic 74 mmHg Height 63.25 inches 5'3.25" (Done On 08/30/10) Weight 178.00 lb 11/30/2010 3:25pm Body Temperature 98.8 F Heart Rate 84 /min Respiratory Rate 18 /min BP Systolic 124 mmHg BP Diastolic 82 mmHg Weight 174.00 lb O2 % BldC Oximetry 97 % 10/28/2010 2:39pm Body Temperature 99.4 F Heart Rate 84 /min Respiratory Rate 16 /min BP Systolic 120 mmHg BP Diastolic 80 mmHg Weight 174.00 lb 08/30/2010 3:36pm Heart Rate 92 /min Respiratory Rate 16 /min BP Systolic 128 mmHg BP Diastolic 88 mmHg Height 63.25 inches 5'3.25" Weight 171.00 lb 05/24/2010 3:25pm Heart Rate 68 /min Respiratory Rate 16 /min BP Systolic 126 mmHg BP Diastolic 84 mmHg Weight 168.00 lb 02/16/2010 3:56pm Heart Rate 84 /min Respiratory Rate 16 /min BP Systolic 128 mmHg BP Diastolic 86 mmHg Weight 162.00 lb 11/16/2009 4:15pm Heart Rate 68 /min Respiratory Rate 16 /min BP Systolic 120 mmHg BP Diastolic 80 mmHg Weight 162.00 lb O2 % BldC Oximetry 98 % 10/16/2009 3:19pm Heart Rate 96 /min Respiratory Rate 16 /min BP Systolic 138 mmHg BP Diastolic 90 mmHg Weight 158.00 lb 10/08/2009 2:57pm Heart Rate 88 /min Respiratory Rate 16 /min BP Systolic 128 mmHg BP Diastolic 84 mmHg Weight 159.00 lb 10/01/2009 11:12am Heart Rate 76 /min Respiratory Rate 16 /min BP Systolic 130 mmHg BP Diastolic 90 mmHg Height 63.25 inches 5'3.25" Weight 154.00 lb Results Test Date Facility Test Result H/L Range Note Hemoglobin A1c 10/30/2018 [facility] Hemoglobin A1c 5.4 % 4.1-5.9 1 Estimated Average Glucose Calc 108 mg/dL 71-140 CBC with Auto Diff-fcmg 10/30/2018 [facility] WBC 10.2 K/uL 4.1-11.0 RBC 4.98 M/uL 4.00-5.40 Hemoglobin 14.6 gm/dL 12.0-16.0 Hematocrit 42.3 % 36.0-47.0 MCV 85.0 fL 80.0-97.0 MCH 29.3 pg 27.0-32.0 MCHC 34.4 g/dL 32.0-36.0 RDW 12.7 % 11.5-14.5 PLT Count 299 K/ul 140-400 MPV 8.2 FL 7.1-10.7 Neutrophil 55.0 % 35.0-75.0 Lymphocyte 36.7 % 16.0-52.0 Monocyte 6.0 % 2.0-10.0 Eosinophil 1.0 % 0.0-5.0 Basophil 1.3 % 0.0-4.0 Abs Neutrophils 5.6 K/uL 2.1-8.0 Abs Lymphocytes 3.7 K/uL 0.8-5.5 Abs Monocytes 0.6 K/uL 0.1-1.0 Abs Eosinophils 0.1 K/uL 0.0-0.5 Abs Basophils 0.1 K/uL 0.0-0.3 Comprehensive Met Panel-FCM 10/30/2018 [facility] Sodium 139 mmol/L 135- 146 2 Potassium 4.3 mmol/L 3.5-5.2 Chloride# 102 mmol/L 97-110 3 Carbon Dioxide 31 mmol/L 24-34 Glucose 85 mg/dL 70-105 BUN 9 mg/dL 6-26 Creatinine 0.6 mg/dL 0.5-1.4 Calcium 9.5 mg/dL 8.5-10.2 Total Protein 6.7 g/dL 6.0-8.0 Albumin 4.4 g/dL 3.6-4.9 Globulin 2.3 g/dL 2.0-3.5 A/G Ratio 1.9 Ratio 1.0-2.2 Total Bilirubin 0.4 mg/dL 0.1-1.3 Alkaline Phosphatase 68 U/L 24-140 Alt 14 U/L 3-42 Ast 12 U/L 8-42 Anion Gap 6 mmol/L 5-15 4 Kayce Egfr >60 >60 5 Non Kayce Egfr >60 >60 6 Laboratory test finding 10/30/2018 [facility] TSH 2.07 uIU/mL 0.35-4.94 Esr 20 mm/hr 0-20 CRP (C-Reactive) 0.24 mg/dL 0.00-0.75 CBC with Auto Diff-fcmg 05/10/2018 [facility] WBC 10.2 K/uL 4.1-11.0 7 RBC 5.08 M/uL 4.00-5.40 Hemoglobin 15.1 gm/dL 12.0-16.0 Hematocrit 43.5 % 36.0-47.0 MCV 85.6 fL 80.0-97.0 MCH 29.7 pg 27.0-32.0 MCHC 34.7 g/dL 32.0-36.0 RDW 12.7 % 11.5-14.5 PLT Count 258 K/ul 140-400 MPV 8.9 FL 7.1-10.7 Neutrophil 53.3 % 35.0-75.0 Lymphocyte 37.7 % 16.0-52.0 Monocyte 7.4 % 2.0-10.0 Eosinophil 0.8 % 0.0-5.0 Basophil 0.8 % 0.0-4.0 Abs Neutrophils 5.4 K/uL 2.1-8.0 Abs Lymphocytes 3.8 K/uL 0.8-5.5 Abs Monocytes 0.7 K/uL 0.1-1.0 Abs Eosinophils 0.1 K/uL 0.0-0.5 Abs Basophils 0.1 K/uL 0.0-0.3 Comprehensive Met Panel-FCMG 05/10/2018 [facility] Sodium 138 mmol/L 135- 146 8 Potassium 3.8 mmol/L 3.5-5.2 Chloride# 100 mmol/L 97-110 9 Carbon Dioxide 31 mmol/L 24-34 Glucose 93 mg/dL 70-105 BUN 9 mg/dL 6-26 Creatinine 0.7 mg/dL 0.5-1.4 Calcium 9.6 mg/dL 8.5-10.2 Total Protein 7.0 g/dL 6.0-8.0 Albumin 4.4 g/dL 3.6-4.9 Globulin 2.6 g/dL 2.0-3.5 A/G Ratio 1.7 Ratio 1.0-2.2 Total Bilirubin 0.5 mg/dL 0.1-1.3 Alkaline Phosphatase 71 U/L 24-140 Alt 13 U/L 3-42 Ast 11 U/L 8-42 Kayce Egfr >60 >60 10 Non Kayce Egfr >60 >60 11 Anion Gap 7 mmol/L 5-15 12 Laboratory test finding 05/10/2018 [facility] TSH 2.53 uIU/mL 0.35-4.94 Esr 33 mm/hr High 0-20 CRP (C-Reactive) 0.31 mg/dL 0.00-0.75 Hemoglobin A1c 05/10/2018 [facility] Hemoglobin A1c 5.4 % 4.1-5.9 Estimated Average Glucose Calc 108 mg/dL 71-140 Comprehensive Metabolic (CMP) 07/06/2016 [facility] Sodium 135 mmol/L 134- 142 13 Potassium 4.3 mmol/L 3.5-5.2 Chloride 103 mmol/L 97-109 Carbon Dioxide 26 mmol/L 24-34 Glucose 88 mg/dL 70-105 BUN 8 mg/dL 6-26 Creatinine 0.6 mg/dL 0.5-1.4 Calcium 9.1 mg/dL 8.5-10.2 Total Protein 6.8 g/dL 6.0-8.0 Albumin 4.2 g/dL 3.6-4.9 Globulin 2.6 g/dL 2.0-3.5 A/G Ratio 1.6 Ratio 1.0-2.2 Total Bilirubin 0.5 mg/dL 0.1-1.3 Alkaline Phosphatase 67 U/L 24-140 Alt 13 U/L 3-42 Ast 12 U/L 8-42 Anion Gap 10 mmol/L 6-14 Kayce Egfr >60 >60 14 Non Kayce Egfr >60 >60 15 CBC With Auto Diff 07/06/2016 [facility] WBC 12.2 K/uL High 4.1-11.0 RBC 5.00 M/uL 4.00-5.40 Hemoglobin 14.7 gm/dL 12.0-16.0 Hematocrit 43.1 % 36.0-47.0 MCV 86.2 fL 80.0-97.0 MCH 29.4 pg 27.0-32.0 MCHC 34.1 g/dL 32.0-36.0 RDW 12.7 % 11.5-14.5 PLT Count 275 K/ul 140-400 Neutrophil 66.0 % 35.0-75.0 Lymphocyte 27.1 % 16.0-52.0 Monocyte 5.5 % 2.0-10.0 Eosinophil 0.8 % 0.0-5.0 Basophil 0.6 % 0.0-4.0 Abs Neutrophils 8.1 K/uL High 2.1-8.0 Abs Lymphocytes 3.3 K/uL 0.8-5.5 Abs Monocytes 0.7 K/uL 0.1-1.0 Abs Eosinophils 0.1 K/uL 0.0-0.5 Abs Basophils 0.1 K/uL 0.0-0.3 Laboratory test 07/06/2016 [facility] TSH 1.88 uIU/mL 0.35-4.94 finding Type And Screen 10/28/2015 [facility] Patient Blood O POS (315)- - Type Antibody Screen Negative Negative Comprehensive Metabolic 10/28/2015 [facility] Glucose 97 mg/dL 74-106 Panel (315)- - BUN 6 mg/dL Low 7-18 Creatinine 0.6 mg/dL 0.6-1.3 Glom Filtration Rate, Estimate >60 mL/min >60 If >60 mL/min >60 16 BUN/Creat 10.0 ratio Sodium 140 mmol/L 136-145 Potassium 3.0 mmol/L Low 3.5-5.1 Chloride 106 mmol/L 98-107 Carbon Dioxide 23 mmol/L 21-32 Anion Gap 11 mEq/L 8-16 Calcium 8.5 mg/dL 8.5-10.1 Total Protein 7.6 g/dL 6.4-8.2 Albumin 3.8 g/dL 3.4-5.0 Globulin 3.8 g/dL 1.9-4.3 Alb/Glob 1.0 ratio Bilirubin,Total 0.3 mg/dL 0.2-1.0 Sgot/Ast 10 U/L Low 15-37 17 SGPT/Alt 24 U/L 12-78 Alkaline Phosphatase 80 U/L 45-117 Laboratory test 10/28/2015 [facility] HCG, Quant 2251.0 mIU/mL 18 finding (315)- - CBC 10/28/2015 [facility] White Blood 13.2 K/uL High 3.1-10. (315)- - Count 7 Red Blood Count 4.68 M/uL 3.90-5.40 Hemoglobin 14.2 gm/dL 11.6-15.8 Hematocrit 40.2 % 36.0-46.1 Mean Cell Volume 85.9 fl 80.9-99.0 Mean Corpuscular HGB 30.3 pg 25.9-32.7 Mean Corpuscular HGB Conc 35.3 g/dL High 30.8-34.3 Platelet Count 227 K/uL 155-360 Red Cell Distri Width %CV 12.5 % 11.7-14.4 Mean Platelet Volume 9.6 fL 8.9-12.4 Urine Screen 10/28/2015 [facility] Ua RFX Micro + See Note 19 (315)- - Culture II Urinalysis With 10/28/2015 [facility] Urine Color YELLOW Yellow Microscopic (315)- - Urine Clarity CLEAR Clear Urine Glucose - Dipstick NEGATIVE mg/dL Negative Urine Bilirubin - Dipstick NEGATIVE Negative Urine Ketone NEGATIVE mg/dL Negative Urine Specific [place] <=1.005 Low 1.010-1.030 Urine Blood LARGE High Negative Urine PH 6.5 6.5-7.5 Urine Protein - Dipstick TRACE mg/dL Negative Urine Urobilinogen - Dipstick 0.2 E.U./dL 0.2-1.0 Urine Nitrite - Dipstick NEGATIVE Negative Urine Leuk Esterase SMALL High Negative Urine RBC >50 rbc/hpf High 0-2 Urine WBC 2-5 wbc/hpf 0-7 Urine Epithelial Cells FEW NONESEEN/lpf Laboratory test 10/26/2015 [facility] HCG, Quant 2217.0 mIU/mL 20 finding (315)- - CBC 10/26/2015 [facility] White Blood 8.6 K/uL 3.1- 10. (315)- - Count 7 Red Blood Count 4.99 M/uL 3.90-5.40 Hemoglobin 14.9 gm/dL 11.6-15.8 Hematocrit 42.6 % 36.0-46.1 Mean Cell Volume 85.4 fl 80.9-99.0 Mean Corpuscular HGB 29.9 pg 25.9-32.7 Mean Corpuscular HGB Conc 35.0 g/dL High 30.8-34.3 Platelet Count 230 K/uL 155-360 Red Cell Distri Width %CV 12.6 % 11.7-14.4 Mean Platelet Volume 9.6 fL 8.9-12.4 Laboratory test 10/26/2015 [facility] Urine HCG POSITIVE High Negative finding (315)- - (Qualitative) Urine Screen 10/26/2015 [facility] Urine Color YELLOW Yellow (315)- - Urine Clarity CLEAR Clear Urine Glucose - Dipstick NEGATIVE mg/dL Negative Urine Bilirubin - Dipstick NEGATIVE Negative Urine Ketone NEGATIVE mg/dL Negative Urine Specific [place] 1.015 1.010-1.030 Urine Blood TRACE Negative Urine PH 8.5 High 6.5-7.5 Urine Protein - Dipstick NEGATIVE mg/dL Negative Urine Urobilinogen - Dipstick 0.2 E.U./dL 0.2-1.0 Urine Nitrite - Dipstick NEGATIVE Negative Urine Leuk Esterase NEGATIVE Negative Estimated GFR 08/06/2015 [facility] Creatinine 0.6 mg/dL 0.6-1.3 (315)- - Glom Filtration Rate, Estimate >60 mL/min >60 If >60 mL/min >60 21 CBC With Auto 08/06/2015 [facility] White Blood 10.2 K/ uL 3.1-10.7 Diff (315)- - Count Red Blood Count 4.81 M/uL 3.90-5.40 Hemoglobin 14.5 gm/dL 11.6-15.8 Hematocrit 41.7 % 36.0-46.1 Mean Cell Volume 86.7 fl 80.9-99.0 Mean Corpuscular HGB 30.1 pg 25.9-32.7 Mean Corpuscular HGB Conc 34.8 g/dL High 30.8-34.3 Platelet Count 303 K/uL 155-360 Red Cell Distri Width SD 38.8 fl 3-47 Red Cell Distri Width %CV 12.7 % 11.7-14.4 Mean Platelet Volume 9.9 fL 8.9-12.4 Neut% 59.3 % 40.4-72.8 Lymph % 31.2 % 17.0-46.1 [place] % 7.7 % 4.3-13.2 Eo% 1.4 % 0.0-6.6 Bas% 0.4 % 0.0-1.1 Neut# 6.06 K/uL 1.0-7.0 Lymph # 3.19 K/uL 1.8-7.0 [place] # 0.79 K/uL 0.3-0.9 Eos # 0.14 K/uL 0.0-0.5 Baso # 0.04 K/uL 0.0-0.1 CMP, Comp Metabolic 08/06/2015 [facility] Glucose 90 mg/ dL 74-106 Panel (315)- - BUN 8 mg/dL 7-18 Creatinine 0.6 mg/dL 0.6-1.3 Glom Filtration Rate, Estimate >60 mL/min >60 If >60 mL/min >60 22 BUN/Creat 13.3 ratio Sodium 140 mmol/L 136-145 Potassium 4.0 mmol/L 3.5-5.1 Chloride 105 mmol/L 98-107 Carbon Dioxide 27 mmol/L 21-32 Anion Gap 8 mEq/L 8-16 Calcium 8.9 mg/dL 8.5-10.1 Total Protein 6.7 g/dL 6.4-8.2 Albumin 3.9 g/dL 3.4-5.0 Globulin 2.8 g/dL 1.9-4.3 Alb/Glob 1.4 ratio Bilirubin,Total 0.5 mg/dL 0.2-1.0 Sgot/Ast 15 U/L 15-37 SGPT/Alt 27 U/L 12-78 Alkaline Phosphatase 81 U/L 45-117 Laboratory test 08/06/2015 [facility] Thyroid Stim 1.75 0.36-3.74 finding (315)- - Hormone uIU/mL Laboratory test 05/26/2015 [facility] Prolactin 14.7 ng/ml 23, 24 finding CBC With Auto 05/26/2015 [facility] WBC 11.7 K/uL High 4.1-11.0 Diff RBC 5.11 M/uL 4.00-5.40 Hemoglobin 14.8 gm/dL 12.0-16.0 Hematocrit 44.2 % 36.0-47.0 MCV 86.5 fL 80.0-97.0 MCH 28.9 pg 27.0-32.0 MCHC 33.4 g/dL 32.0-36.0 RDW 12.5 % 11.5-14.5 PLT Count 281 K/ul 140-400 Neutrophil 61.1 % 35.0-75.0 Lymphocyte 32.2 % 16.0-52.0 Monocyte 5.4 % 2.0-10.0 Eosinophil 0.6 % 0.0-5.0 Basophil 0.7 % 0.0-4.0 Abs Neutrophils 7.2 K/uL 2.1-8.0 Abs Lymphocytes 3.8 K/uL 0.8-5.5 Abmon 0.6 K/uL 0.1-1.0 Abs Eosinophils 0.1 K/uL 0.0-0.5 Abs Basophils 0.1 K/uL 0.0-0.3 Comprehensive Metabolic (CMP) 05/26/2015 Ke[facility] Sodium 136 mmol/L 134- 142 Potassium 3.8 mmol/L 3.5-5.2 Chloride 102 mmol/L 97-109 Carbon Dioxide 28 mmol/L 24-34 Glucose 86 mg/dL 70-105 BUN 10 mg/dL 6-26 Creatinine 0.6 mg/dL 0.5-1.4 Calcium 9.9 mg/dL 8.5-10.2 Total Protein 7.1 g/dL 6.0-8.0 Albumin 4.5 g/dL 3.6-4.9 Globulin 2.6 g/dL 2.0-3.5 A/G Ratio 1.7 Ratio 1.0-2.2 Total Bilirubin 0.3 mg/dL 0.1-1.3 Alkaline Phosphatase 72 U/L 24-140 Alt 16 U/L 3-42 Ast 12 U/L 8-42 Anion Gap 10 mmol/L 6-14 Kayce Egfr >60 >60 25 Non Kayce Egfr >60 >60 26 Laboratory test 05/26/2015 Anastacioard TSH 2.43 uIU/mL 0.35-4.94 finding Laboratory test 04/25/2014 N2N/CCD Import Helicobacter <0.9 U/mL 0.0- 0.8 27 finding Pylori, Igg Antinuclear 01/22/2014 N2N/CCD Import Antinuclear See patterns . 28 Antibodies, Ifa Antibodies, Ifa Homogeneous Pattern 1:80 . Note See Note 29 Laboratory test finding 01/22/2014 N2N/CCD Import % Baso. 1.0 % 0.0-2.0 % Eos. 1.6 % 0.0-4.0 % Lymph 33 % 20-44 % [place] 7.1 % 2.0-10.0 % Nicole 58 % 50-70 A/G Ratio 1.6 ratio Low 1.6-2.2 Absolute Baso. 0.1 K/ul 0.0-0.3 Absolute Eos. 0.2 K/ul 0.0-0.5 Absolute Lymph. 3.2 K/ul 0.8-4.8 Absolute [place]. 0.7 K/ul 0.1-1.0 Absolute Nicole. 5.68 K/ul 2.05-7.63 Albumin 4.4 g/dL 3.5-5.0 Alk. Phos. 74.0 U/L 30.0-126.0 Alt 15.0 U/L 9.0-52.0 Anion Gap 8.0 mmol/L Low 10.0-20.0 Ast 13.0 U/L Low 14.0-36.0 BUN 11.0 mg/dL 7.0-18.0 BUN/Creat Ratio 15.7 ratio 12.0-20.0 Calcium 9.7 mg/dL 8.7-10.5 Chloride 106.0 mmol/L 98.0-107.0 Co2 26.0 mmol/L 22.0-30.0 Creatinine-Serum 0.7 mg/dL 0.7-1.2 DRVVT 28.9 sec 0.0-55.1 Ebv AB Vca,Igg <18.0 U/mL 0.0-17.9 30 Ebv AB Vca,Igm <36.0 U/mL 0.0-35.9 31 Ebv Early Antigen AB, IgG <9.0 U/mL 0.0-8.9 32 Ebv Interpretation See Note 33 Ebv Nuclear Antigen AB, Igg <18.0 U/mL 0.0-17.9 34 Esr Sedrate 14.0 sec 0.0-25.0 Globulin 2.8 g/dL 2.7-4.3 Glucose 92.0 mg/dL 75.0-110.0 HCT 44.1 % 37.0-51.0 HGB 15.5 Gm/dl 12.0-16.0 MCH 29.8 pg 26.0-32.0 MCHC 35.1 g/dL 31.0-36.0 MCV 85.1 Fl 80.0-97.0 MPV 6.4 fL 6.0-10.0 Note: Comment: . 35 PLT 332 K/ul 140-440 PTT-LA 51.9 sec High 0.0-50.0 PTT-LA Incub Mix 43.0 sec 0.0-50.0 PTT-LA Mix 44.4 sec 0.0-50.0 Potasium 3.9 mmol/L 3.6-5.0 RBC 5.2 M/ul 4.2-6.3 RDW 11.3 % Low 11.5-14.5 Sodium 140.0 mmil/L 137.0-145.0 Total Bilirubin 0.3 mg/dL 0.2-1.3 Total Protein 7.2 g/dL 6.3-8.2 WBC 9.9 K/ul 4.1-10.9 eGFR 105.4 mi/minper1.73 36 Laboratory test finding 12/03/2013 N2N/CCD Import Bas% 0.6 % 0.0-1.1 Baso # 0.06 K/uL 0.0-0.1 Eo% 1.1 % 0.0-6.6 Eos # 0.11 K/uL 0.0-0.5 Hematocrit 45.0 % 36.0-46.1 Hemoglobin 15.7 gm/dL 11.6-15.8 Immunoglobulin A 133 mg/dL 91-414 Immunoglobulin G,Quant,Serum 1122 mg/dL 700-1600 Immunoglobulin M 239 mg/dL High 40-230 37 Lymph # 3.34 K/uL 0.8-3.4 Lymph % 32.5 % 17.0-46.1 Mean Cell Volume 84.7 fl 80.9-99.0 Mean Corpuscular HGB 29.6 pg 25.9-32.7 Mean Corpuscular HGB Conc 34.9 g/dL High 30.8-34.3 Mean Platelet Volume 10.3 fL 8.9-12.4 [place] # 0.77 K/uL 0.3-0.9 [place] % 7.5 % 4.3-13.2 Neut# 5.99 K/uL 1.0-7.0 Neut% 58.3 % 40.4-72.8 Platelet Count 289 K/uL 155-360 Red Blood Count 5.31 M/uL 3.90-5.40 Red Cell Distri Width %CV 12.1 % 11.7-14.4 Red Cell Distri Width SD 36.6 fl 3-47 Thyroid Stim Hormone 1.61 uIU/mL 0.49-4.67 White Blood Count 10.3 K/uL 3.1-10.7 Lipid Panel 12/17/2012 N2N/CCD Import Chol/HDL Ratio 4.2 ratio Cholesterol 181.0 mg/dL 50.0-199.0 HDL 43.0 mg/dL 29.0-86.0 LDL, Calculated 115.6 mg/dL 20.0-129.0 Triglycerides 112.0 mg/dL 30.0-249.0 vLDL 22.4 ng/dL Laboratory test finding 12/17/2012 N2N/CCD Import % A1c 5.2 % 4.1-6.5 BUN 8.0 mg/dL 7.0-18.0 BUN/Creat Ratio 11.4 ratio Low 12.0-20.0 Calcium 9.5 mg/dL 8.7-10.5 Chloride 105.0 mmol/L 98.0-107.0 Co2 22.0 mmol/L 22.0-30.0 Creatinine-Serum 0.7 mg/dL 0.7-1.2 Glucose 84.0 mg/dL 75.0-110.0 Potasium 3.6 mmol/L 3.6-5.0 Sodium 139.0 mmil/L 137.0-145.0 eGFR 101.8 Laboratory test 11/15/2012 N2N/CCD Import Throat Culture See Note 38 finding Complete Laboratory test 09/24/2012 N2N/CCD Import % Baso. 0.9 % 0.0-2.0 finding % Eos. 1.1 % 0.0-4.0 % Lymph 34 % 20-44 % [place] 6.6 % 2.0-10.0 % Nicole 58 % 50-70 Absolute Baso. 0.1 K/ul 0.0-0.3 Absolute Eos. 0.1 K/ul 0.0-0.5 Absolute Lymph. 3.7 K/ul 0.8-4.8 Absolute [place]. 0.7 K/ul 0.1-1.0 Absolute Nicole. 6.31 K/ul 2.05-7.63 BUN 11.0 mg/dL 7.0-18.0 BUN/Creat Ratio 15.7 ratio 12.0-20.0 Calcium 9.9 mg/dL 8.7-10.5 Chloride 104.0 mmol/L 98.0-107.0 Co2 25.0 mmol/L 22.0-30.0 Creatinine-Serum 0.7 mg/dL 0.7-1.2 Glucose 93.0 mg/dL 75.0-110.0 HCT 45.9 % 37.0-51.0 HGB 15.3 Gm/dl 12.0-16.0 MCH 29.1 pg 26.0-32.0 MCHC 33.4 g/dL 31.0-36.0 MCV 87.1 Fl 80.0-97.0 MPV 7.4 fL 6.0-10.0 PLT 308 K/ul 140-440 Potasium 3.5 mmol/L Low 3.6-5.0 RBC 5.3 M/ul 4.2-6.3 RDW 11.0 % Low 11.5-14.5 Sodium 139.0 mmil/L 137.0-145.0 TSH 1.56 uIU/ml 0.50-6.00 WBC 10.9 K/ul 4.1-10.9 eGFR 102.4 Laboratory test 10/28/2010 N2N/CCD Import Throat Culture See Note 39 finding Complete Laboratory test 10/01/2009 N2N/CCD Import Antigliadin Abs, 1.9 U/mL 0.0- 10. 40 finding IgA 0 Antigliadin Abs, IgG 0.7 U/mL 0.0-10.0 Ebv AB Vca,Igg <0.2 0.0-0.8 41 Ebv AB Vca,Igm <0.2 0.0-0.8 42 Ebv Early Antigen AB, IgG 0.2 AI 0.0-0.8 43 Ebv Interpretation See Note 44 Ebv Nuclear Antigen AB, Igg <0.2 0.0-0.8 45 Endomysial IgA Antibody Negative Negative Immunoglobulin A 130 mg/dL 70-400 Lyme AB/Total Immunoglobulins < 0.91 index 0.00-0.90 46 Lyme Disease Antibody,QT,Igm <0.91 index 0.00-0.90 47 Rheumatoid Factor Screen Negative Negative 48 t-Transglutaminase IgA 1 U/mL 0-3 49 t-Transglutaminase IgG 0 U/mL 0-5 50 Antinuclear 10/01/2009 N2N/CCD Import Antinuclear See patterns . 51 Antibodies, Ifa Antibodies, Ifa Homogeneous Pattern 1:160 High . Note See Note 52 Nucleolar Pattern 1:160 High . Laboratory test 10/01/2009 N2N/CCD Import Absolute 0.078 K/ul 0.0-0.3 finding Basophils Absolute Eosinophils 0.036 K/ul 0.0-0.5 Absolute Lymphocytes 1.93 K/ul 0.8-4.8 Absolute Monocytes 0.735 K/ul 0.1-1.0 Absolute Neutrophils 4.94 K/ul 2.05-7.63 Anion Gap 16 mmol/L 10-20 BUN 7 mg/dL 7-18 BUN/CR Ratio 9.7 Ratio Low 12-20 Basophil 1.0 % 0-2 Calcium 9.9 mg/dL 8.7-10.5 Carbon Dioxide 27 mmol/L 22-30 Chloride 100 mmol/L 98-107 Creatinine, Serum 0.7 mg/dL 0.7-1.2 Eosinophil 0.5 % 0-4 Esr (Sed Rate/Westergren) 3 SEC 0-25 Glucose 93 mg/dL 65-105 Hematocrit 42.5 % 37.0-51.0 Hemoglobin 15.0 GM/dl 12.0-16.0 Lymphocytes 25.0 % 20-44 MCH 30.6 pg 26.0-32.0 MCHC 35.2 g/dL 31.0-36.0 MCV 87 FL 80-97 Monocytes 9.5 % 2-10.0 Neutrophils 64.0 % 50-70 Platelet Count 320 K/ul 140-440 Potassium 3.9 mmol/L 3.6-5.0 RBC 4.88 M/ul 4.2-6.3 RDW 10.6 % Low 11.5-14.5 Sodium 139 mmol/L 137-145 TSH 1.310 uIU/ml 0.50-6.00 WBC 7.7 K/ul 4.1-10.9 Hepatic Function 10/01/2009 N2N/CCD Import Albumin 4.4 g/dL 3.5-5.0 Alkaline Phosphatase 78 U/L 30-126 Alt 24 U/L 9-52 Ast 24 U/L 14-36 Total Bilirubin 0.3 mg/dL 0.2-1.3 Total Protein 7.3 g/dL 6.3-8.2 Laboratory test 10/01/2009 N2N/CCD Import Absolute 0.078 K/ul 0.0-0.3 finding Basophils Absolute Eosinophils 0.036 K/ul 0.0-0.5 Absolute Lymphocytes 1.93 K/ul 0.8-4.8 Absolute Monocytes 0.735 K/ul 0.1-1.0 Absolute Neutrophils 4.94 K/ul 2.05-7.63 Anion Gap 16 mmol/L 10-20 BUN 7 mg/dL 7-18 BUN/CR Ratio 9.7 Ratio Low 12-20 Basophil 1.0 % 0-2 Calcium 9.9 mg/dL 8.7-10.5 Carbon Dioxide 27 mmol/L 22-30 Chloride 100 mmol/L 98-107 Creatinine, Serum 0.7 mg/dL 0.7-1.2 Eosinophil 0.5 % 0-4 Esr (Sed Rate/Westergren) 3 SEC 0-25 Glucose 93 mg/dL 65-105 Hematocrit 42.5 % 37.0-51.0 Hemoglobin 15.0 GM/dl 12.0-16.0 Lymphocytes 25.0 % 20-44 MCH 30.6 pg 26.0-32.0 MCHC 35.2 g/dL 31.0-36.0 MCV 87 FL 80-97 Monocytes 9.5 % 2-10.0 Neutrophils 64.0 % 50-70 Platelet Count 320 K/ul 140-440 Potassium 3.9 mmol/L 3.6-5.0 RBC 4.88 M/ul 4.2-6.3 RDW 10.6 % Low 11.5-14.5 Sodium 139 mmol/L 137-145 TSH 1.310 uIU/ml 0.50-6.00 WBC 7.7 K/ul 4.1-10.9 Hepatic Function 10/01/2009 N2N/CCD Import Albumin 4.4 g/dL 3.5-5.0 Alkaline Phosphatase 78 U/L 30-126 Alt 24 U/L 9-52 Ast 24 U/L 14-36 Total Bilirubin 0.3 mg/dL 0.2-1.3 Total Protein 7.3 g/dL 6.3-8.2 1 prior to office visit in october 13 Updated reference range on new analyzer 3 Updated reference range on new analyzer 4 Updated Reference Range 5 Concerning GFR Guidelines for Americans: Normal function or mild renal disease, if clinically at risk: >/=60 mL/min Moderately decreased: 30-59 Severely decreased: 15-29 Renal failure: <15 6 Concerning GFR Guidelines: Normal function or mild renal disease, if clinically at risk: >/=60 mL/min Moderately decreased: 30-59 Severely decreased: 15-29 Renal failure: <15 Glomerular Filtration Rate (GFR) is estimated based on the MDRD equation, which assumes a steady state for creatinine as recommended by the National Kidney Disease Education Program in conjunction with the National Institutes of Health and the National Kidney Foundation. Clinical conditions in which it may be necessary to measure GFR by using clearance methods include extremes of age and body size, severe malnutrition or obesity, diseases of skeletal muscle, paraplegia or quadriplegia, vegetarian diet, rapidly changing kidney function, and calculation of the dose of potentially toxic drugs that are excreted by the kidneys. 7 3 mos 8 Updated reference range on new analyzer 9 Updated reference range on new analyzer 10 Concerning GFR Guidelines for Americans: Normal function or mild renal disease, if clinically at risk: >/=60 mL/min Moderately decreased: 30-59 Severely decreased: 15-29 Renal failure: <15 11 Concerning GFR Guidelines: Normal function or mild renal disease, if clinically at risk: >/=60 mL/min Moderately decreased: 30-59 Severely decreased: 15-29 Renal failure: <15 Glomerular Filtration Rate (GFR) is estimated based on the MDRD equation, which assumes a steady state for creatinine as recommended by the National Kidney Disease Education Program in conjunction with the National Institutes of Health and the National Kidney Foundation. Clinical conditions in which it may be necessary to measure GFR by using clearance methods include extremes of age and body size, severe malnutrition or obesity, diseases of skeletal muscle, paraplegia or quadriplegia, vegetarian diet, rapidly changing kidney function, and calculation of the dose of potentially toxic drugs that are excreted by the kidneys. 12 Updated Reference Range 13 6 mos 14 Concerning GFR Guidelines for Americans: Normal function or mild renal disease, if clinically at risk: >/=60 mL/min Moderately decreased: 30-59 Severely decreased: 15-29 Renal failure: <15 15 Concerning GFR Guidelines: Normal function or mild renal disease, if clinically at risk: >/=60 mL/min Moderately decreased: 30-59 Severely decreased: 15-29 Renal failure: <15 Glomerular Filtration Rate (GFR) is estimated based on the MDRD equation, which assumes a steady state for creatinine as recommended by the National Kidney Disease Education Program in conjunction with the National Institutes of Health and the National Kidney Foundation. Clinical conditions in which it may be necessary to measure GFR by using clearance methods include extremes of age and body size, severe malnutrition or obesity, diseases of skeletal muscle, paraplegia or quadriplegia, vegetarian diet, rapidly changing kidney function, and calculation of the dose of potentially toxic drugs that are excreted by the kidneys. 16 Note: Persistent reduction for 3 months or more in an eGFR <60 mL/min/1.73 m2 defines CKD. Patients with eGFR values >/=60 mL/min/1.73 m2 may also have CKD if evidence of persistent proteinuria is present. The original MDRD equation for estimated GFR is not valid for patients less than 18 years of age. Additional information may be found at www.kdoqi.org. 17 Values below the stated reference ranges of AST and ALT can be seen in normal populations. Clinical correlation is suggested. 18 Approximate Gestational Age and Total BHCG Range: 0.2 - 1 Week........................5-50 mIU/mL 1 - 2 Weeks.....................50-500 mIU/mL 2 - 3 Weeks..................100-5,000 mIU/mL 3 - 4 Weeks.................500-10,000 mIU/mL 4 - 5 Weeks...............1,000-50,000 mIU/mL 5 - 6 Weeks.............10,000-100,000 mIU/mL 6 - 8 Weeks.............15,000-200,000 mIU/mL 2 - 3 Months............10,000-100,000 mIU/mL 19 10/28/15 LAB.TOW Deleted by Reflex Group [facility] 20 Approximate Gestational Age and Total BHCG Range: 0.2 - 1 Week........................5-50 mIU/mL 1 - 2 Weeks.....................50-500 mIU/mL 2 - 3 Weeks..................100-5,000 mIU/mL 3 - 4 Weeks.................500-10,000 mIU/mL 4 - 5 Weeks...............1,000-50,000 mIU/mL 5 - 6 Weeks.............10,000-100,000 mIU/mL 6 - 8 Weeks.............15,000-200,000 mIU/mL 2 - 3 Months............10,000-100,000 mIU/mL 21 Note: Persistent reduction for 3 months or more in an eGFR <60 mL/min/1.73 m2 defines CKD. Patients with eGFR values >/=60 mL/min/1.73 m2 may also have CKD if evidence of persistent proteinuria is present. The original MDRD equation for estimated GFR is not valid for patients less than 18 years of age. Additional information may be found at www.kdoqi.org. 22 Note: Persistent reduction for 3 months or more in an eGFR <60 mL/min/1.73 m2 defines CKD. Patients with eGFR values >/=60 mL/min/1.73 m2 may also have CKD if evidence of persistent proteinuria is present. The original MDRD equation for estimated GFR is not valid for patients less than 18 years of age. Additional information may be found at www.kdoqi.org. 23 labs today 24 Prolactin Female Normal Values: Pre-menopausal: 3.3-26.7 ng/mL Post-menopausal:2.7-19.6 ng/mL 25 Concerning GFR Guidelines for Americans: Normal function or mild renal disease, if clinically at risk: >/=60 mL/min Moderately decreased: 30-59 Severely decreased: 15-29 Renal failure: <15 26 Concerning GFR Guidelines: Normal function or mild renal disease, if clinically at risk: >/=60 mL/min Moderately decreased: 30-59 Severely decreased: 15-29 Renal failure: <15 Glomerular Filtration Rate (GFR) is estimated based on the MDRD equation, which assumes a steady state for creatinine as recommended by the National Kidney Disease Education Program in conjunction with the National Institutes of Health and the National Kidney Foundation. Clinical conditions in which it may be necessary to measure GFR by using clearance methods include extremes of age and body size, severe malnutrition or obesity, diseases of skeletal muscle, paraplegia or quadriplegia, vegetarian diet, rapidly changing kidney function, and calculation of the dose of potentially toxic drugs that are excreted by the kidneys. 27 Negative <0.9 Indeterminate 0.9 - 1.0 Positive >1.0 Performed at: - [facility] [address] [id number] [employer]elling Floor Leader: Isa Fabian MD, Phone: [phone] 28 Negative <1:80 Borderline 1:80 Positive >1:80 29 A positive NIGEL result may occur in healthy individuals or be associated with a variety of diseases. See interpre- tation below: Pattern Antigen Detected Suggested Disease Association Homogeneous DNA(ds,ss,), High titers - SLE ( Smooth) Histone Speckled Sm, SUCTION WORKER, SCL-70, SLE,MCTD,Scleroderma,Sjogrens SS-A/SS-B ---- Nucleolar SCL-70, PM-1/SCL High titers Scleroderma Poly- myositis/Scleroderma Overlap Centromere Centromere PSS w/Crest syndrome variable 30 Negative <18.0 Equivocal 18.0 - 21.9 Positive >21.9 31 Negative <36.0 Equivocal 36.0 - 43.9 Positive >43.9 32 Negative < 9.0 Equivocal 9.0 - 10.9 Positive >10.9 33 EBV Interpretation Chart Interpretation EBV-IgM VCA-IgG EBNA-IgG EA(D)-IgG EBV Seronegative - - - - Early Phase + - - - Acute Primary + + - +or- Infection Convalescence/Past - + + +or- Infection Reactivated +or- + + + Infection + Antibody Present - Antibody Absent Performed at: [address] [id number] Retail Selling Floor Leader: Pantera Sams MD, Phone: [phone] Performed at: [address] [id number] Retail [employer]elling Floor Leader: Isa Fabian MD, Phone: [phone] 34 Negative <18.0 Equivocal 18.0 - 21.9 Positive >21.9 35 No lupus anticoagulant was detected. These results are consistent with a deficiency of one or more intrinsic pathway factors. Since the dRVVT was within normal limits, the factors in question are VIII, IX, XI, XII and the contact factors. It should be noted that mixing studies performed on samples with minimally extended aPTT results can be equivocal. Normal plasma can overcome weak inhibitors, also resulting in a correction of the mixing study. 36 For -Norwegian patients multiply result by 1.180 37 Performed at: [address] [id number] [employer]elling Floor Leader: Isa Fabian MD, Phone: [phone] 38 NORMAL THROAT MONICA 39 NORMAL THROAT MONICA 40 FASTING 41 Negative <0.9 Equivocal 0.9 - 1.0 Positive >1.0 42 Negative <0.9 Equivocal 0.9 - 1.0 Positive >1.0 43 Negative <0.9 Equivocal 0.9 - 1.0 Positive >1.0 44 EBV Interpretation Chart Interpretation VCA-IgM EA-IgG VCA-IgG NA-ABS Susceptible - - - - Acute Infection + +or- + - Convalescent Phase +or- +or- + + Chronic or Reactivated - + + +or- Old Infection - - +or- + + Antibody Present - Antibody Absent 45 Negative <0.9 Equivocal 0.9 - 1.0 Positive >1.0 46 Negative <0.91 Equivocal 0.91 - 1.09 Positive >1.09 Note: The CDC currently advises that Western blot testing be performed following all equivocal or positive EIA results. Final diagnosis should include appropriate clinical findings and a positive EIA which is also positive by Western blot. 47 Negative <0.91 Equivocal 0.91 - 1.09 Positive >1.09 Note: IgM levels may peak at 3-6 weeks post infection, then gradually decline. FDA currently advises that Western Blot testing be performed following all equivocal or positive EIA results. Final diagnosis should include appropriate clinical findings and a positive EIA which is also positive by Western Blot. 48 FASTING 49 Negative 0 - 3 Weak Positive 4 - 10 Positive >10 Tissue Transglutaminase ( tTG) has been identified as the endomysial antigen. Studies have demonstr- ated that endomysial IgA antibodies have over 99% specificity for gluten sensitive enteropathy. 50 Negative 0 - 5 Weak Positive 6 - 9 Positive >9 51 Negative <1:80 Borderline 1:80 Positive >1:80 52 A positive NIGEL result may occur in healthy individuals or be associated with a variety of diseases. See interpre- tation below: Pattern Antigen Detected Suggested Disease Association Homogeneous DNA(ds,ss,), High titers - SLE ( Smooth) Histone Speckled Sm, SUCTION WORKER, SCL-70, SLE,MCTD,Scleroderma,Sjogrens SS-A/SS-B ---- Nucleolar SCL-70, PM-1/SCL High titers Scleroderma Poly- myositis/Scleroderma Overlap Centromere Centromere PSS w/Crest syndrome variable Procedures Date Code Description Status 05/05/2015 76198 X-Ray Chest Two Views Frontal & Lateral Completed 07/31/2014 53592 Colonoscopy Flexible Diagnostic Completed 07/31/2014 [id number] Colonoscopy Completed 10/15/2013 46472 Measure Blood Oxygen Level Single Determination Completed 06/15/2012 46117 Measure Blood Oxygen Level Single Determination Completed 06/15/2012 47242 Electrocardiogram Complete Completed 11/30/2010 76787 Measure Blood Oxygen Level Single Determination Completed 11/16/2009 58070 Measure Blood Oxygen Level Single Determination Completed Encounters Type Date Location Provider Dx Diagnosis Office Visit 08/17/2018 [facility] Sharon Borja PA F41.1 Generalized anxiety 8:00a disorder Z68.35 Body mass index (BMI) 35.0-35.9, adult Office Visit 05/14/2018 3:00p [facility] Riana Ratliff MD G47.00 Insomnia, unspecified F41.1 Generalized anxiety disorder M79.7 Fibromyalgia O24.419 Gestational diabetes mellitus in , unsp control R70.0 Elevated erythrocyte sedimentation rate Z12.31 Encntr screen mammogram for malignant neoplasm of breast Z68.34 Body mass index (BMI) 34.0-34.9, adult Office Visit 02/19/2018 3:45p [facility] Riana Ratliff MD F41.1 Generalized anxiety disorder M79.7 Fibromyalgia O24.410 Gestational diabetes mellitus in , diet controlled G47.00 Insomnia, unspecified Z68.35 Body mass index (BMI) 35.0-35.9, adult Office Visit 01/11/2018 4:30p [facility] Riana Ratliff MD F41.1 Generalized anxiety disorder Z68.34 Body mass index (BMI) 34.0-34.9, adult Office Visit 11/20/2017 11:15a [facility] Riana Ratliff MD G47.00 Insomnia, unspecified F41.1 Generalized anxiety disorder M79.7 Fibromyalgia Z68.35 Body mass index (BMI) 35.0-35.9, adult Office Visit 08/08/2017 3:45p [facility] Riana Ratliff MD G47.00 Insomnia, unspecified F41.1 Generalized anxiety disorder Office Visit 06/05/2017 4:00p [facility] Riana Ratliff MD G47.00 Insomnia, unspecified F41.1 Generalized anxiety disorder M79.7 Fibromyalgia Office Visit 01/10/2017 3:45p [facility] Riana Ratliff MD J01.90 Acute sinusitis, unspecified Office Visit 07/12/2016 3:00p [facility] Riana Ratliff MD G47.00 Insomnia, unspecified F41.1 Generalized anxiety disorder M79.7 Fibromyalgia Z68.35 Body mass index (BMI) 35.0-35.9, adult Office Visit 01/26/2016 10:00a [facility] Riana Ratliff MD F41.1 Generalized anxiety disorder M79.7 Fibromyalgia G47.00 Insomnia, unspecified O00.9 Ectopic , unspecified Office Visit 08/11/2015 9:15a [facility] Riana Ratliff MD G47.00 Insomnia, unspecified F41.1 Generalized anxiety disorder M79.7 Fibromyalgia N64.4 Mastodynia Office Visit 05/26/2015 2:30p [facility] Riana Ratliff MD R05 Cough M79.7 Fibromyalgia N64.4 Mastodynia N64.52 Nipple discharge Office Visit 05/05/2015 3:15p [facility] Riana Ratliff MD R05 Cough M79.7 Fibromyalgia Office Visit 04/30/2015 4:00p [facility] Riana Ratliff MD 780.52 Sleep Disturbance, Insomnia Unspecified 300.02 Anxiety Disorder Generalized 780.79 Malaise And Fatigue Other Office Visit 02/26/2015 10:15a [facility] Riana Ratliff MD 780.79 Malaise And Fatigue Other 780.52 Sleep Disturbance, Insomnia Unspecified 300.02 Anxiety Disorder Generalized 521.03 Dental Caries Extending Into Pulp Office Visit 12/23/2014 4:30p [facility] Riana Ratliff MD 300.02 Anxiety Disorder Generalized 780.52 Sleep Disturbance, Insomnia Unspecified 780.79 Malaise And Fatigue Other Office Visit 08/28/2014 2:45p [facility] Riana Ratliff MD 780.79 Malaise And Fatigue Other 780.52 Sleep Disturbance, Insomnia Unspecified 300.02 Anxiety Disorder Generalized Plan of Treatment Future Appointment(s):11/12/2018 11:00 am - Schedule, Laboratory at [facility]2018 4:15 pm - Riana Ratliff MD at [facility]11/06/2018 - Riana Ratliff MDE66.9 Obesity, [id number] Encounter for screening for depressionComments: screening for depression is negative PHQ-2=0G47.00 Insomnia, unspecifiedComments :doing ok without sleep aid.F41.1 Generalized anxiety disorderComments:has been using xanax 0.25 mg 1-2 times daily - refill today. [place] [employer] checked and in compliance -M79.7 FibromyalgiaComments:duloxetine helps with this. last saw dr talbert and he feels this is fibromyalgia.Follow up:lipid panel soon. 3 mo follow-up without labs rmqmsQ76.32 Personal history of gestational diabetesNew Labs:Lipid, Scheduled: 11/12/18Comments:the A1c is normal and stable - check lipid panel with next labsR59.9 Enlarged lymph nodes, unspecifiedNew Xrays: Unlisted Ultrasound Procedure, Scheduled: 11/30/18ultrasound axilla, Scheduled: 11/30/18Comments:will check ultrasound of the left cervical lymph nodes and left axilla . it is reassuring that the sedimentation rate is improving.Z68.35 Body mass index (BMI) 35.0-35.9, adultAllComments:schedule mammo
--- NOTE | 2018-11-08 11:52 | UC ---
Ear Complaint HPI - HPI Summary HPI Summary: dizziness and L ear popping for 4 days. was recently ill w/ a virus approx 1 wk or so ago. dizziness is worse w/ head movement. denies vision or hearing changes. she also notes L neck lymph nodes that are swollen. states she usually has these b/c of her chronic illness but that there was a new one behind her jaw that was getting smaller but noticed it felt different. nothing makes it better/worse. she feels she may be getting fibromyalgia flare up. has a specialist on board. - History of Current Complaint Stated Complaint: LEFT EAR PAIN Time Seen by Provider: 11/08/18 11:38 Hx Obtained From: Patient Hx Last Menstrual Period: 07/10/17 ?: No - uses condoms and DECLINED Urine hcg today Aggravating Factors: Other - turning her head makes dizziness worse. - Allergies/Home Medications Allergies/Adverse Reactions: Allergies Allergy/AdvReac Type Severity Reaction Status Date / Time Penicillins Allergy Hives Verified 11/08/18 11:50 Home Medications: Home Medications Cholecalciferol TAB* [Vitamin D TAB*] 2,000 unit PO DAILY 11/08/18 [History Confirmed 11/08/18] DULoxetine DR CAP* [Cymbalta CAP*] 30 mg PO DAILY 11/08/18 [History Confirmed ] Magnesium Oxide [Magnesium] 400 mg PO DAILY 11/08/18 [History Confirmed 11/08/18 ] PMH/Surg Hx/FS Hx/Imm Hx - Additional Past Medical History Additional PMH: FIBROMYALGIA Previously Healthy: Yes - Surgical History Surgical History: Yes Surgery Procedure, Year, and Place: T&A, 1987. x2. LEEP, 1999 - Family History Known Family History: Negative: Cardiac Disease, Diabetes - Social History Alcohol Use: Weekly Alcohol Amount: 1 bottle of wine a week Substance Use Type: None Smoking Status (MU): Former Smoker Type: Cigarettes Length of Time of Smoking/Using Tobacco: 8 Years Have You Smoked in the Last Year: No When Did the Patient Quit Smoking/Using Tobacco: 2006 - Immunization History Most Recent Influenza Vaccination: 2015 Most Recent Pneumonia Vaccination: none Review of Systems All Other Systems Reviewed And Are Negative: Yes Constitutional: Negative: Fever Eyes: Negative: Blurred Vision ENT: Positive: Ear Ache - EAR POPPING L SIDE, Other - LYMPH NODE SWELLING ON L SIDE OF NECK. denies changes in hearing Respiratory: Positive: Negative Cardiovascular: Positive: Negative Musculoskeletal: Negative: Arthralgia Psychological: Negative: Anxious Physical Exam Triage Information Reviewed: Yes Appearance: Well-Appearing Vital Signs Reviewed: Yes Eyes: Positive: Other: - PERRLA ENT Exam: Normal ENT: Positive: TMs normal - including canal bilat Dental: Positive: Cervical Lymphadenopathy - L ivan Neck: Positive: Enlarged Nodes @ - I do note a firm, small lymphadenopathy behind jaw but this is nontender.. Negative: Tenderness @ Respiratory Exam: Normal Cardiovascular Exam: Normal Neurological: Positive: Alert, Other: - +dizziness returns w/ head movement during exam Ear Complaint Course/Dx - Course Course Of Treatment: Vertiginous symptoms x4 days after a recent illness. Vitals are good. As far as her ear popping it must be pressure changes as exam is unremarkable. For the lymph nodes I have strongly encouraged her to f/u w/ pcp or her specialist to investigate further although reassuring that it is getting smaller. I gave her some exercises to do to help w/ the symptoms and rx'd meclizine although we discussed this med may not work. - Differential Dx/Diagnosis Differential Diagnosis/HQI/PQRI: Cellulitis, Otitis Externa, Otitis Media, Trauma, URI Provider Diagnosis: Vertigo Discharge - Sign-Out/Discharge Documenting (check all that apply): Patient Departure All imaging exams completed and their final reports reviewed: No Studies - Discharge Plan Condition: Good Disposition: HOME Prescriptions: Meclizine TAB* [Antivert 12.5 TAB*] 25 mg PO BID 3 Days #6 tab Patient Education Materials: Vertigo (ED) Referrals: Riana Ratliff MD [Primary Care Provider] - Additional Instructions: [email or web address] try this link for vertiginous symptom relief. - Billing Disposition and Condition Condition: GOOD Disposition: Home
[2018-11-08 11:55] VITALS: BP 133/75
== END 2018-11-08 12:30 | disposition home or self-care (01) ==
LOC: UCCORT 11:10
DX: R42 Dizziness and giddiness (principal); R59.0 Localized enlarged lymph nodes; Z87.891 Personal history of nicotine dependence; Z88.0 Allergy status to penicillin
CPT/HCPCS: 99212; G0463

== ENCOUNTER 2019-08-08 15:46 | Emergency (ER) | payer BC ==
--- OUTSIDE RECORDS SUMMARY | 2019-08-08 16:27 | XMS REPORT | Continuity of Care Document ---
:1980 External Reference #:[id number] Author Name Riana Ratliff MD Address [address] [place] [id number] Care Team Providers Name Role Phone Melida Gurrola MD - Surgery Care Team Information Apartment Coordinator [phone] Joel De MD - Surgery Care Team Information Apartment Coordinator Problems Active Problems Provider Date Insomnia Riana Ratliff MD Onset: 05/24/2010 Generalized anxiety disorder Riana Ratliff MD Onset: 10/01/2009 Fibromyalgia Riana Ratliff MD Onset: 08/11/2015 History of gestational diabetes mellitus Riana Ratliff MD Onset: 11/06/2018 History of polyp of colon Riana Ratliff MD Onset: 06/11/2019 Lymphadenopathy Riana Ratliff MD Onset: 06/11/2019 Social History Type Date Description Comments Sex Unknown ETOH Use Denies alcohol use Tobacco Use Start: Unknown End: Patient is a former Unknown smoker Smoking Status Reviewed: 11/20/17 Patient is a former smoker Exercise Exercises sporadically has tried to start Type/Frequency exercise but does not get to go very often. Allergies, Adverse Reactions, Alerts Active Allergies Reaction Severity Comments Date Penicillins Hives 10/01/2009 Medications Active Medications SIG Qnty Indications Ordering Date Provider Duloxetine HCL take 1 capsule 90caps M79.7 Riana Ratliff, 12/28/[address] by mouth every MD Part day Magnesium 1 by mouth Riana Ratliff, 06/05/2017 500mg Capsules every day otc Alprazolam 1 tab by mouth 90tabs F41.1 Riana Ratliff, 06/05/2017 0.25mg Tablets three times MD daily as needed Vitamin D High Potency 1 by mouth 30caps Riana Ratliff, 01/10/2017 every day MD 1000Unit Capsules Multivitamin Adult 1 by mouth Unknown Tablets every day Cyclobenzaprine HCL TK 1 T PO QHS Unknown 5mg Tablets Immunizations CPT Code Status Date Vaccine Lot # [id number] Given 06/02/2018 Flu Vaccine NOS [id number] Given 06/14/2017 Afluria Or Fluvirin Flu Vac Intramuscular Q2035 Given 05/20/2016 Afluria Imunization Q2039 Given 05/14/2016 Flu Vaccine NOS Q2037 Given 06/05/2015 Fluvirin Immunization 05867 Given 05/09/2014 Afluria Or Fluvirin Flu Vac Intramuscular 20554 Given 06/07/2013 Afluria Or Fluvirin Flu Vac Intramuscular 17618 Given 07/10/2012 Afluria Or Fluvirin Flu Vac Intramuscular 85987 Given 04/25/2012 Tdap (Adacel) Ages 7 And Above Only Q2039 Refused 05/14/2018 Flu Vaccine NOS Vital Signs Date Vital Result Comment 06/11/2019 3:30pm Weight 199.00 lb Heart Rate 94 /min BP Systolic 136 mmHg BP Diastolic 78 mmHg Respiratory Rate 18 /min Height 63 inches 5'3" O2 % BldC Oximetry 97 % Ra BMI (Body Mass Index) 35.2 kg/m2 03/07/2019 2:55pm Weight 196.00 lb Heart Rate 91 /min BP Systolic 120 mmHg BP Diastolic 72 mmHg Respiratory Rate 18 /min Height 63 inches 5'3" O2 % BldC Oximetry 98 % Ra BMI (Body Mass Index) 34.7 kg/m2 Results Test Date Facility Test Result H/L Range Note Drugs Of 12/28/2018 [facility] Amphetamines,Uri NEGATIVE <1000 ng/mL Abuse,Urine-[facility] ne Barbiturates,Urine NEGATIVE <200 ng/mL Benzodiazepines, Urine POSITIVE Abnormal <200 ng/mL Bupernorphrine/Norbu,Urine NEGATIVE <10 ng/mL Cocaine Metabolites,Urine NEGATIVE <300 ng/mL Methadone,Urine NEGATIVE <300 ng/mL Opiates,Urine NEGATIVE <300 ng/mL Oxycodone,Urine NEGATIVE <100 ng/mL Phencyclidine,Urine NEGATIVE <25 ng/mL Cannabinoids,Urine NEGATIVE <50 ng/mL Procedures Date Code Description Status 06/05/2019 94676954 Mammogram Completed 07/31/2014 [id number] Colonoscopy Completed Medical Devices Description No Information Available Encounters Type Date Location Provider Dx Diagnosis Office Visit 03/07/2019 2:45p [facility] Riana Ratliff MD E66.9 Obesity, unspecified F41.1 Generalized anxiety disorder Z86.32 Personal history of gestational diabetes G47.00 Insomnia, unspecified M79.7 Fibromyalgia R59.9 Enlarged lymph nodes, unspecified Z68.34 Body mass index (BMI) 34.0-34.9, adult Office Visit 12/28/2018 11:15a [facility] Riana Ratliff MD R59.9 Enlarged lymph nodes, unspecified F41.1 Generalized anxiety disorder Z68.34 Body mass index (BMI) 34.0-34.9, adult Assessments Date Code Description Provider 06/11/2019 F41.1 Generalized anxiety disorder Riana Ratliff MD 06/11/2019 Z86.32 Personal history of gestational diabetes Riana Ratliff MD 06/11/2019 G47.00 Insomnia, unspecified Riana Ratliff MD 06/11/2019 R59.9 Enlarged lymph nodes, unspecified Riana Ratliff MD 06/11/2019 Z86.010 Personal history of colonic polyps Riana Ratliff MD 06/11/2019 M79.7 Fibromyalgia Riana Ratliff MD 03/07/2019 E66.9 Obesity, unspecified Riana Ratliff MD 03/07/2019 F41.1 Generalized anxiety disorder Riana Ratliff MD 03/07/2019 Z86.32 Personal history of gestational diabetes Riana Ratliff MD 03/07/2019 G47.00 Insomnia, unspecified Riana Ratliff MD 03/07/2019 M79.7 Fibromyalgia Riana Ratliff MD 03/07/2019 R59.9 Enlarged lymph nodes, unspecified Riana Ratliff MD 03/07/2019 Z68.34 Body mass index (BMI) 34.0-34.9, adult Riana Ratliff MD 12/28/2018 R59.9 Enlarged lymph nodes, unspecified Riana Ratliff MD 12/28/2018 F41.1 Generalized anxiety disorder Riana Ratliff MD 12/28/2018 Z68.34 Body mass index (BMI) 34.0-34.9, adult Riana Ratliff MD 12/28/2018 F41.1 Generalized anxiety disorder [facility] 12/28/2018 Z79.899 Other group home (current) drug therapy [facility] Plan of Treatment Future Appointment(s):09/13/2019 3:00 pm - Riana Ratliff MD at [facility]06/11/2019 - Riana Ratliff MDF41.1 Generalized anxiety disorderComments:Anxiety is well controlled with the use of alprazolam. Continue current medication.Follow up:3- months follow up with fasting labs prior.Z86.32 Personal history of gestational diabetesComments:We will repeat test once a year.G47.00 Insomnia, unspecifiedComments:The patient is doing well without sleep aid.R59.9 Enlarged lymph nodes, unspecifiedComments:The patient had needle biopsy back in January. She saw Dr. De in January, discussed getting biopsy, and observe. He wanted to do an imaging prior to seeing the patient. As far as the lymph nodes are concerning, we will not do any intervention at this time.Biopsy of the lymph nodes was normal, but the sample was small. CT suggest benign lymph nodes ; but consider biopsy. At this time (06/11/2019), she does not want to pursue further. Aware to call further.Z86.010 Personal history of colonic polypsComments:Colonoscopy is due after 07/31.M79.7 FibromyalgiaComments: Fibromyalgia is managed by duloxetine. Continue current medication. Functional Status Description No Information Available Mental Status Description No Information Available Referrals Refer to Reason for Referral Status Appt Date Joel De MD evaluation and treatment enlarged lymph Closed nodes. After 2:30pm please faxed 12/28 -TRS Called office, they are closed for the afternoon. -TRS [phone] [facility] [id number] [phone]
[2019-08-08 16:42] VITALS: BP 142/91
--- NOTE | 2019-08-08 16:53 | UC ---
Knee Pain HPI - HPI Summary HPI Summary: Pt presents with nc/o atraumatic right knee pain and swelling. Pt states that she has a 2yera old son ,that she frequently carries and bends down to play with child. Pt states that pain is wrose when walking up stairs. Denies previous injury or surgery to knee. - History of Current Complaint Chief Complaint: UCLowerExtremity Stated Complaint: RT KNEE PAIN Time Seen by Provider: 08/08/19 16:38 Hx Obtained From: Patient Hx Last Menstrual Period: 07/20/19 ?: No Onset/Duration: Gradual Onset, Lasting Days, Still Present Severity Initially: Mild Severity Currently: Moderate Pain Intensity: 8 Character: Sharp - when walking up stairs, Dull, Aching, Stiffness Aggravating Factor(s): Movement, Weight Bearing, Stairs Alleviating Factor(s): Rest Associated Signs And Symptoms: Positive: Swelling Able to Bear Weight: Yes - Risk Factors Septic Arthritis Risk Factor: Negative Gout Risk Factor: Age ^ 38 - Allergies/Home Medications Allergies/Adverse Reactions: Allergies Allergy/AdvReac Type Severity Reaction Status Date / Time Penicillins Allergy Hives Verified 08/08/19 16:42 Home Medications: Home Medications Cyclobenzaprine TAB* [Flexeril 10 MG TAB*] 10 mg PO BEDTIME 08/08/19 [History Confirmed 08/08/19] PMH/Surg Hx/FS Hx/Imm Hx Previously Healthy: Yes - Surgical History Surgical History: Yes Surgery Procedure, Year, and Place: T&A, 1987. x2. LEE, 1999 - Family History Known Family History: Negative: Cardiac Disease, Diabetes - Social History Occupation: Employed Full-time Lives: With Family Alcohol Use: Weekly Alcohol Amount: 1 bottle of wine a week Substance Use Type: None Smoking Status (MU): Former Smoker Type: Cigarettes Length of Time of Smoking/Using Tobacco: 8 Years Have You Smoked in the Last Year: No When Did the Patient Quit Smoking/Using Tobacco: 2006 - Immunization History Most Recent Influenza Vaccination: 2015 Most Recent Pneumonia Vaccination: none Review of Systems All Other Systems Reviewed And Are Negative: Yes Constitutional: Positive: Negative Skin: Positive: Negative Eyes: Positive: Negative ENT: Positive: Negative Respiratory: Positive: Negative Cardiovascular: Positive: Negative Gastrointestinal: Positive: Negative Genitourinary: Positive: Negative Motor: Positive: Decreased ROM - pain with ROm right knee Neurovascular: Positive: Negative Musculoskeletal: Positive: Arthralgia - right, Edema - right, Myalgia - right Neurological: Positive: Negative Psychological: Positive: Negative Is Patient Immunocompromised?: No Physical Exam Triage Information Reviewed: Yes Appearance: Well-Appearing Vital Signs: Initial Vital Signs Temp 99.8 F 08/08/19 16:38 Pulse 108 08/08/19 16:38 Resp 16 08/08/19 16:38 BP 142/91 08/08/19 16:38 Pulse Ox 100 08/08/19 16:38 Vital Signs Reviewed: Yes Eye Exam: Normal ENT Exam: Normal ENT: Positive: Hearing grossly normal Dental Exam: Normal Neck exam: Normal Respiratory: Positive: No respiratory distress Musculoskeletal: Positive: Edema @ - generalized swelling right knee, Other: - c /o pain with ROM in right knee Neurological Exam: Normal Psychological Exam: Normal Skin Exam: Normal Knee Pain Course/Dx - Differential Dx/Diagnosis Differential Diagnosis/HQI/PQRI: Bursitis, Tendonitis Provider Diagnosis: Knee pain, right, Swelling of right knee joint Discharge ED - Sign-Out/Discharge Documenting (check all that apply): Patient Departure All imaging exams completed and their final reports reviewed: No Studies - Discharge Plan Condition: Stable Disposition: HOME Patient Education Materials: Swollen Knee Joint (ED), Knee Pain (ED), R.I.C.E. Treatment (ED), Safe Use of NSAIDs (ED) Referrals: Poncho Lima MD [Medical Doctor] - If Needed Riana Ratliff MD [Primary Care Provider] - If Needed Denise Isaac MD [Medical Doctor] - If Needed - Billing Disposition and Condition Condition: STABLE Disposition: Home
== END 2019-08-08 17:03 | disposition home or self-care (01) ==
LOC: UCCORT 15:46
DX: M25.561 Pain in right knee (principal); M25.461 Effusion, right knee; Z87.891 Personal history of nicotine dependence; Z88.0 Allergy status to penicillin
CPT/HCPCS: 99211; G0463